=== PATIENT | male | born 1965 | race African-American/Black ===

== ENCOUNTER 2017-02-23 23:29 | Emergency (ER) | payer SELFPAY ==
[~2017-02-23] VITALS: Ht 167.6 cm; Wt 59.0 kg
[2017-02-23] MEDS ORDERED: SODIUM CHLORIDE 0.9% 1,000 ML IV ONE (23:45)
[2017-02-23] MEDS ORDERED: KETOROLAC 30MG/ML VIAL IV STA (23:45)
[2017-02-24 00:03] LABS: BASOPHILS % 0.7 % (0.0-2.0); EOSINOPHILS % 2.4 % (0.0-5.0); HEMATOCRIT. 45.6 % (42.0-52.0); HEMOGLOBIN. 15.2 g/dL (14.0-18.0); LYMPHOCYTES % 15.9 % (20.0-50.0); MEAN CORPUSCULAR HEMOGLOBIN 31.7 pg (28.0-32.0); MEAN CORPUSCULAR HGB CONC 33.3 g/dL (31.0-37.0); MEAN CORPUSCULAR VOLUME 95.4 fL (80.0-94.0); MEAN PLATELET VOLUME 7.3 fl (7.4-10.4); MONOCYTES % 8.2 % (2.0-8.0); NEUTROPHILS % 72.8 % (40.0-76.0); PLATELET 261 x1000/uL (130-400); RED BLOOD CELL COUNT 4.78 mill/uL (4.7-6.1); RED CELL DISTRIBUTION WIDTH 13.4 % (11.6-14.6)
[2017-02-24 00:10] LABS: PROTHROMBIN TIME 10.5 sec
[2017-02-24 00:18] LABS: ALANINE AMINOTRANSFERASE 16 IU/L (13-61); ALBUMIN 3.8 g/dL (3.4-5.0); ANION GAP 11; CALCIUM 8.6 mg/dL (8.5-10.1); CARBON DIOXIDE 29 mEq/L (21-32); CHLORIDE 102 mEq/L (98-107); ETHANOL BLOOD < 10 mg/dL; INDEX HEMOLYSI 1 (1-3); INDEX ICTERIC 1 (1-4); INDEX LIPEMIC 1 (1-3); NT PRO B-TYPE NATRIURETIC PEP 26 pg/mL (5-125); TROPONIN I < 0.02 ng/mL (0.00-0.04); UREA NITROGEN BLOOD 15 mg/dL (7-21); eGFR > 60 mL/min (>60)
[2017-02-24 03:20] VITALS: BP 113/73
== END 2017-02-24 04:28 | disposition home or self-care (01) ==
LOC: ER 02-24 01:55
DX: R07.89 Other chest pain (principal); I10 Essential (primary) hypertension; J45.909 Unspecified asthma, uncomplicated; F17.210 Nicotine dependence, cigarettes, uncomplicated; F12.10 Cannabis abuse, uncomplicated; F15.10 Other stimulant abuse, uncomplicated; F14.10 Cocaine abuse, uncomplicated; J98.11 Atelectasis; R10.9 Unspecified abdominal pain; Z20.6 Contact with and (suspected) exposure to human immunodeficiency virus [HIV]
CPT/HCPCS: 36415; 71010; 74176; 80053; 83880; 84484; 85025; 85610; 93005; 96361; 96374; 99285; G0482; J1885; J7030; Z7610

== ENCOUNTER 2017-02-24 11:32 | Emergency (ER) | payer SELFPAY ==
[~2017-02-24] VITALS: Ht 177.8 cm; Wt 68.0 kg
[2017-02-24] MEDS ORDERED: HYDROCODONE/ACETAMINOPHEN 5/325MG TABLET PO ONE ×2 (14:00→15:30)
[2017-02-24 14:04] LABS: CLARITY URINE CLEAR (CLEAR); COLOR URINE YELLOW (YELLOW); GLUCOSE URINE NEGATIVE (NEGATIVE); KETONES URINE NEGATIVE (NEGATIVE); LEUKOCYTE ESTERASE URINE NEGATIVE (NEGATIVE); NITRITE URINE NEGATIVE (NEGATIVE); OCCULT BLOOD URINE NEGATIVE (NEGATIVE); PH URINE 5.5 (4.5-8.0); PROTEIN URINE NEGATIVE (NEGATIVE); SPECIFIC GRAVITY URINE 1.024 (1.005-1.030); UROBILINOGEN URINE 0.2 E.U./dL (0.2-1.0)
[2017-02-24] MEDS ORDERED: KETOROLAC 15MG/ML VIAL IV ONE (15:30)
[2017-02-24 15:53] VITALS: BP 150/91
== END 2017-02-24 16:09 | disposition home or self-care (01) ==
LOC: ER 11:32
DX: R10.11 Right upper quadrant pain (principal); I10 Essential (primary) hypertension; J45.909 Unspecified asthma, uncomplicated; F17.210 Nicotine dependence, cigarettes, uncomplicated; F14.10 Cocaine abuse, uncomplicated; F15.10 Other stimulant abuse, uncomplicated; Z88.6 Allergy status to analgesic agent
CPT/HCPCS: 81003; 96374; 99284; J1885

== ENCOUNTER 2017-02-25 12:43 | Emergency (ER) | payer SELFPAY ==
[~2017-02-25] VITALS: Ht 172.7 cm; Wt 59.0 kg
[2017-02-25] MEDS ORDERED: ONDANSETRON HCL 4MG/2ML VIAL IM ONE (13:45)
[2017-02-25] MEDS ORDERED: MORPHINE SULFATE 10 MG/ML CPJ IM ONE (13:45)
[2017-02-25 14:27] LABS: CLARITY URINE CLEAR (CLEAR); COLOR URINE YELLOW (YELLOW); GLUCOSE URINE NEGATIVE (NEGATIVE); KETONES URINE NEGATIVE (NEGATIVE); LEUKOCYTE ESTERASE URINE NEGATIVE (NEGATIVE); NITRITE URINE NEGATIVE (NEGATIVE); OCCULT BLOOD URINE NEGATIVE (NEGATIVE); PROTEIN URINE NEGATIVE (NEGATIVE); SPECIFIC GRAVITY URINE 1.016 (1.005-1.030); UROBILINOGEN URINE 0.2 E.U./dL (0.2-1.0)
[2017-02-25 14:30] LABS: HEMATOCRIT. 43.9 % (42.0-52.0); HEMOGLOBIN. 14.9 g/dL (14.0-18.0); MEAN CORPUSCULAR HEMOGLOBIN 32.1 pg (28.0-32.0); MEAN CORPUSCULAR VOLUME 94.5 fL (80.0-94.0); MEAN PLATELET VOLUME 7.6 fl (7.4-10.4); PLATELET 268 x1000/uL (130-400); RED BLOOD CELL COUNT 4.64 mill/uL (4.7-6.1); RED CELL DISTRIBUTION WIDTH 13.1 % (11.6-14.6); WHITE BLOOD COUNT 8.3 x1000/uL (4.5-11.0)
[2017-02-25 14:32] LABS: CHLORIDE 100 mEq/L (98-107); INDEX HEMOLYSI 1 (1-3); INDEX ICTERIC 1 (1-4); INDEX LIPEMIC 1 (1-3)
[2017-02-25 14:36] LABS: ALBUMIN 3.7 g/dL (3.4-5.0); ANION GAP 10; CALCIUM 8.9 mg/dL (8.5-10.1); CARBON DIOXIDE 30 mEq/L (21-32); UREA NITROGEN BLOOD 11 mg/dL (7-21)
[2017-02-25 14:37] LABS: DIFFERENTIAL COMMENT 1
[2017-02-25 14:38] LABS: PROTHROMBIN TIME 10.4 sec
[2017-02-25 14:42] LABS: ALANINE AMINOTRANSFERASE 16 IU/L (13-61); eGFR > 60 mL/min (>60)
[2017-02-25 14:47] LABS: *AMPHETAMINES SCREEN URINE NEGATIVE (NEGATIVE); *BARBITURATES SCREEN URINE NEGATIVE (NEGATIVE); *BENZODIAZEPINES SCREEN URINE NEGATIVE (NEGATIVE); *COCAINE SCREEN URINE PRESUMTIVE POSITIVE (NEGATIVE); CANNABINOID URINE SCREEN NEGATIVE (NEGATIVE); ECSTASY MDMA SCREEN URINE NEGATIVE (NEGATIVE); METHADONE URINE SCREEN NEGATIVE (NEGATIVE); OPIATES URINE SCREEN PRESUMTIVE POSITIVE (NEGATIVE); PHENCYCLIDINE URINE SCREEN NEGATIVE (NEGATIVE)
[2017-02-25 16:08] LABS: ANISOCYTOSIS 1+; PLATELET ESTIMATE NORMAL
[2017-02-25] MEDS ORDERED: IBUPROFEN 600MG TABLET PO ONE (18:45)
[2017-02-25 19:13] VITALS: BP 139/102
== END 2017-02-25 19:46 | disposition home or self-care (01) ==
LOC: ER 12:43
DX: M54.5 Low back pain (principal); F14.10 Cocaine abuse, uncomplicated; F15.10 Other stimulant abuse, uncomplicated; F12.10 Cannabis abuse, uncomplicated; F17.210 Nicotine dependence, cigarettes, uncomplicated; I10 Essential (primary) hypertension; Z88.6 Allergy status to analgesic agent; J45.909 Unspecified asthma, uncomplicated; Z59.0 Homelessness
CPT/HCPCS: 36415; 74176; 80053; 80305; 81003; 85025; 85610; 96372; 99285; J2270; J2405

== ENCOUNTER 2018-07-25 11:34 | Emergency (ER) | payer MEDICAID ==
[~2018-07-25] VITALS: Ht 167.6 cm; Wt 63.0 kg
[2018-07-25] MEDS ORDERED: ASPIRIN 81MG TABLET PO ONE (12:15)
[2018-07-25] MEDS ORDERED: SODIUM CHLORIDE 0.9% 1,000 ML IV ONE (12:15)
[2018-07-25] MEDS ORDERED: NITROGLYCERIN 0.4MG TABLET SL SL ONE (12:15)
[2018-07-25 13:01] LABS: BASOPHILS % 0.6 % (0.0-2.0); EOSINOPHILS % 13.8 % (0.0-5.0); HEMATOCRIT. 48.6 % (42.0-52.0); HEMOGLOBIN. 16.7 g/dL (14.0-18.0); LYMPHOCYTES % 28.2 % (20.0-50.0); MEAN CORPUSCULAR HEMOGLOBIN 32.2 pg (28.0-32.0); MEAN CORPUSCULAR VOLUME 93.6 fL (80.0-94.0); MONOCYTES % 7.6 % (2.0-8.0); NEUTROPHILS % 49.8 % (40.0-76.0); PLATELET 291 x1000/uL (130-400); RED BLOOD CELL COUNT 5.19 mill/uL (4.7-6.1); RED CELL DISTRIBUTION WIDTH 14.4 % (11.6-14.6)
[2018-07-25 13:04] LABS: INR 0.9; PROTHROMBIN TIME 9.4 sec (9.1-11.1)
[2018-07-25 13:07] LABS: CHLORIDE 102 mEq/L (98-107)
[2018-07-25] MEDS ORDERED: DEXTROSE 50% WATER 50ML SYRINGE IV ONE (13:26)
[2018-07-25 18:01] VITALS: BP 108/76
== END 2018-07-25 18:07 | disposition home or self-care (01) ==
LOC: ER 11:34
DX: R07.89 Other chest pain (principal); K08.89 Other specified disorders of teeth and supporting structures; J45.909 Unspecified asthma, uncomplicated; I10 Essential (primary) hypertension; F17.200 Nicotine dependence, unspecified, uncomplicated; F14.10 Cocaine abuse, uncomplicated; F12.10 Cannabis abuse, uncomplicated; Z88.6 Allergy status to analgesic agent
CPT/HCPCS: 36415; 71045; 80053; 82962; 84484; 85025; 85610; 93005; 99285; J7030

== ENCOUNTER 2018-08-05 14:18 | Emergency (ER) | payer MEDICAID ==
[~2018-08-05] VITALS: Ht 170.2 cm; Wt 56.7 kg
[2018-08-05 14:40] VITALS: BP 110/79
== END 2018-08-05 18:15 | disposition left against medical advice (07) ==
LOC: ER 14:18
DX: R05 Cough (principal); R07.0 Pain in throat; R09.89 Other specified symptoms and signs involving the circulatory and respiratory systems; J45.909 Unspecified asthma, uncomplicated; I10 Essential (primary) hypertension; F12.10 Cannabis abuse, uncomplicated; F17.200 Nicotine dependence, unspecified, uncomplicated; Z53.21 Procedure and treatment not carried out due to patient leaving prior to being seen by health care provider

== ENCOUNTER 2020-04-19 08:55 | Emergency (ER) | payer MEDICAID ==
[~2020-04-19] VITALS: Ht 172.7 cm; Wt 75.0 kg
[2020-04-19] MEDS ORDERED: ACETAMINOPHEN 325MG TABLET PO ONE (10:15)
[2020-04-19 10:35] VITALS: BP 134/92
== END 2020-04-19 10:35 | disposition home or self-care (01) ==
LOC: ER 08:55
DX: R21 Rash and other nonspecific skin eruption (principal); I10 Essential (primary) hypertension; F12.10 Cannabis abuse, uncomplicated; J45.909 Unspecified asthma, uncomplicated; Z88.6 Allergy status to analgesic agent
CPT/HCPCS: 99282; 99283

== ENCOUNTER 2021-08-04 19:28 | Inpatient (IN) | payer MEDICAID ==
[~2021-08-04] VITALS: Ht 167.6 cm; Wt 54.7 kg
[2021-08-04] MEDS ORDERED: ONDANSETRON 4MG ODT PO STA (22:09)
[2021-08-04] MEDS ORDERED: ACETAMINOPHEN 325MG TABLET PO ONE (22:15)
[2021-08-04 22:20] LABS: CLARITY URINE CLEAR (CLEAR); COLOR URINE YELLOW (YELLOW); KETONES URINE NEGATIVE (NEGATIVE); LEUKOCYTE ESTERASE URINE NEGATIVE (NEGATIVE); NITRITE URINE NEGATIVE (NEGATIVE); OCCULT BLOOD URINE NEGATIVE (NEGATIVE); PH URINE 5.5 (4.5-8.0); PROTEIN URINE 1+ (NEGATIVE); SPECIFIC GRAVITY URINE 1.012 (1.005-1.030); UROBILINOGEN URINE 0.2 E.U./dL (0.2-1.0)
[2021-08-04 22:29] LABS: CANNABINOID URINE SCREEN NEGATIVE (NEGATIVE); METHADONE URINE SCREEN NEGATIVE (NEGATIVE); OPIATES URINE SCREEN NEGATIVE (NEGATIVE)
[2021-08-04 22:30] LABS: *AMPHETAMINES SCREEN URINE NEGATIVE (NEGATIVE); *BARBITURATES SCREEN URINE NEGATIVE (NEGATIVE); *BENZODIAZEPINES SCREEN URINE NEGATIVE (NEGATIVE); *COCAINE SCREEN URINE PRESUMTIVE POSITIVE (NEGATIVE); PHENCYCLIDINE URINE SCREEN NEGATIVE (NEGATIVE)
[2021-08-04 23:00] LABS: HEMATOCRIT. 38.7 % (42.0-52.0); HEMOGLOBIN. 13.1 g/dL (14.0-18.0); MEAN CORPUSCULAR HEMOGLOBIN 32.5 pg (28.0-32.0); MEAN CORPUSCULAR VOLUME 95.8 fL (80.0-94.0); MEAN PLATELET VOLUME 7.3 fl (7.4-10.4); PLATELET 287 x1000/uL (130-400); RED BLOOD CELL COUNT 4.04 mill/uL (4.7-6.1); RED CELL DISTRIBUTION WIDTH 13.1 % (11.6-14.6)
[2021-08-04 23:05] LABS: CHLORIDE 101 mEq/L (98-107)
[2021-08-04 23:09] LABS: ETHANOL BLOOD < 10 mg/dL
[2021-08-04 23:16] LABS: PLATELET ESTIMATE NORMAL
[2021-08-05] MEDS ORDERED: SODIUM CHLORIDE 0.9% 1,000 ML IV ONE (00:30)
[2021-08-05] MEDS ORDERED: METOCLOPRAMIDE HCL 10MG/2ML VIAL IV ONE (00:30)
[2021-08-05] MEDS ORDERED: DIPHENHYDRAMINE 50MG/ML VIAL IV ONE (00:30)
[2021-08-05 02:04] LABS: PROTHROMBIN TIME 10.6 sec (9.6-11.0)
[2021-08-05] MEDS ORDERED: ASPIRIN 325MG EC TABLET PO ONE (02:15)
[2021-08-05] MEDS ORDERED: IOHEXOL-350 100 ML BOTTLE ONE (02:31)
[2021-08-05] MEDS ORDERED: ONDANSETRON HCL 4MG/2ML INJ IV PRN (08:45)
[2021-08-05 12:00] VITALS: BP 117/68
[2021-08-05] MEDS: NICOTINE 14MG PATCH TD SCH (13:31)
[2021-08-05] MEDS: THIAMINE HCL 100MG TABLET PO SCH (13:31)
[2021-08-05] MEDS: ACETAMINOPHEN 325MG TABLET PO PRN ×2 (13:32→23:19)
[2021-08-05 14:30] VITALS: BP 107/71
[2021-08-05] MEDS ORDERED: SUMATRIPTAN SUCCINATE 6MG/0.5ML VIAL SUBCUT NR (14:30)
[2021-08-05 16:00] VITALS: BP_SYST 110; BP_SYST 143; BP_DIAS 58; BP_DIAS 86
[2021-08-05 19:44] VITALS: BP 110/58
[2021-08-05 20:00] VITALS: BP 116/86
[2021-08-06] VITALS: BP 121/84
[2021-08-06 04:00] VITALS: BP 110/76
[2021-08-06 08:00] VITALS: BP 127/96
[2021-08-06] MEDS ORDERED: NALOXONE HCL 0.4MG/ML VIAL IV PRN (08:15)
[2021-08-06] MEDS: THIAMINE HCL 100MG TABLET PO SCH (08:45)
[2021-08-06] MEDS: NICOTINE 14MG PATCH TD SCH (08:45)
[2021-08-06] MEDS: ASPIRIN 81MG TABLET PO SCH (08:45)
[2021-08-06] MEDS: ACETAMINOPHEN 325MG TABLET PO PRN (08:45)
[2021-08-06 12:00] VITALS: BP 116/81
[2021-08-06 16:00] VITALS: BP 108/80
[2021-08-06 20:00] VITALS: BP 118/91
[2021-08-06] MEDS: HYDROCODONE/ACETAMINOPHEN 5/325MG TABLET PO PRN (23:05)
[2021-08-07] MEDS: HYDROCODONE/ACETAMINOPHEN 5/325MG TABLET PO PRN (06:27)
[2021-08-07 08:00] VITALS: BP 110/82
[2021-08-07] MEDS: NICOTINE 14MG PATCH TD SCH (08:28)
[2021-08-07] MEDS: THIAMINE HCL 100MG TABLET PO SCH (08:28)
[2021-08-07] MEDS: ASPIRIN 81MG TABLET PO SCH (08:28)
[2021-08-07] MEDS ORDERED: ASPI-1160 PO (08:42)
[2021-08-07] MEDS ORDERED: THIA100T72 PO (08:42)
[2021-08-07 13:52] VITALS: BP 129/84
[2021-08-07 14:00] VITALS: BP 117/90
== END 2021-08-07 14:57 | disposition home or self-care (01) | DRG 54 ==
LOC: ER 19:28 → MICUSO 08-05 07:58 → 8WST 08-05 09:22
PROVIDERS: ADMIT Internal Medicine; ATTEND Internal Medicine
DX: G43.909 Migraine, unspecified, not intractable, without status migrainosus (principal); E44.0 Moderate protein-calorie malnutrition; D72.819 Decreased white blood cell count, unspecified; F14.90 Cocaine use, unspecified, uncomplicated; F17.210 Nicotine dependence, cigarettes, uncomplicated; I10 Essential (primary) hypertension; J45.909 Unspecified asthma, uncomplicated; Z68.1 Body mass index [BMI] 19.9 or less, adult; Z88.8 Allergy status to other drugs, medicaments and biological substances; Z71.51 Drug abuse counseling and surveillance of drug abuser
CPT/HCPCS: 36415; 70496; 70498; 70551; 71045; 80053; 80061; 80305; 80320; 81003; 82962; 84484; 85025; 93005; 97162; 99291; J1200; J2765; J3030; J7030; Q0162; Q9967; G0480

== ENCOUNTER 2022-10-29 13:55 | Emergency (ER) | payer MEDICAID ==
[~2022-10-29] VITALS: Ht 170.2 cm; Wt 58.0 kg
[~2022-10-29 13:55] MED LIST: ASPI-1160 PO; THIA100T72 PO
[2022-10-29 14:22] VITALS: BP 109/71
[2022-10-29 15:57] LABS: CHLORIDE 96 mEq/L (98-107)
[2022-10-29 15:58] LABS: HEMATOCRIT. 42.4 % (42.0-52.0); HEMOGLOBIN. 14.1 g/dL (14.0-18.0); MEAN CORPUSCULAR HEMOGLOBIN 32.6 pg (28.0-32.0); PLATELET 280 x1000/uL (130-400); RED BLOOD CELL COUNT 4.32 mill/uL (4.7-6.1); RED CELL DISTRIBUTION WIDTH 13.6 % (11.6-14.6)
[2022-10-29 16:52] LABS: PLATELET ESTIMATE NORMAL
== END 2022-10-29 21:41 | disposition left against medical advice (07) ==
LOC: ER 13:55
DX: Z53.21 Procedure and treatment not carried out due to patient leaving prior to being seen by health care provider (principal); R53.1 Weakness
CPT/HCPCS: 36415; 80053; 85025; 99283

== ENCOUNTER 2022-10-29 21:19 | Inpatient (IN) | payer MEDICAID ==
[~2022-10-29] VITALS: Ht 172.7 cm; Wt 55.3 kg
[2022-10-29] MEDS ORDERED: VANCOMYCIN 1G PREMIX 200 ML IV ONE (23:45)
[2022-10-29] MEDS ORDERED: SODIUM CHLORIDE 0.9% 1000ML BAG (SEPSIS BOLUS) IV ONE (23:45)
[2022-10-29] MEDS ORDERED: PIPERACILLIN/TAZ 3.375G PREMIX 50 ML IV ONE (23:45)
[2022-10-29] MEDS ORDERED: IPRATROPIUM BROMIDE (0.02%) 0.5MG/2.5ML NEB HHN STA (23:58)
[2022-10-29] MEDS ORDERED: METHYLPREDNISOLONE SOD SUCC 125 MG/2 ML VIAL IV STA (23:58)
[2022-10-30] MEDS ORDERED: MAGNESIUM 2 G PREMIX 50 ML IV ONE
[2022-10-30] MEDS: ALBUTEROL (0.083%) 2.5MG/3ML NEB HHN SCH ×3 (00:30→01:00)
[2022-10-30 01:57] LABS: BG BASE EXCESS -1.2 mmol/L (-2.0-2.0); BG CARBOXYHEMOGLOBIN 0.3 % (0.5-1.5); BG DEOXYHEMOGLOBIN 5.5 % (0.0-5.0); BG FRACTION INSPIRED OXYGEN 28; BG HCO3 ACT 21.7 mmol/L (22.0-26.0); BG OXYGEN SATURATION 94.5 % (92.0-98.5); BG OXYHEMOGLOBIN 94.2 % (94.0-97.0); BG PCO2 30.9 mmHg (35.0-45.0); BG PH 7.464 (7.350-7.450); BG PO2 72.8 mmHg (75.0-100.0); BG SAMPLE SITE RH; BG VENT MODE NASAL CANNULA
[2022-10-30] MEDS ORDERED: VANCOMYCIN 1G PREMIX 200 ML IV NR (06:38)
[2022-10-30 07:06] LABS: CLARITY URINE CLOUDY (CLEAR); COLOR URINE YELLOW (YELLOW); KETONES URINE TRACE (NEGATIVE); LEUKOCYTE ESTERASE URINE NEGATIVE (NEGATIVE); NITRITE URINE NEGATIVE (NEGATIVE); OCCULT BLOOD URINE 2+ (NEGATIVE); PROTEIN URINE 3+ (NEGATIVE); SPECIFIC GRAVITY URINE 1.022 (1.005-1.030); UROBILINOGEN URINE 0.2 E.U./dL (0.2-1.0)
[2022-10-30] MEDS ORDERED: IPRATROPIUM/ALBUTEROL 0.5-3(2.5)MG/3ML NEB HHN PRN (08:00)
[2022-10-30] MEDS ORDERED: LORAZEPAM 0.5MG TABLET PO PRN (08:00)
[2022-10-30] MEDS ORDERED: PIPERACILLIN/TAZ 3.375G PREMIX 50 ML IV NR (08:15)
[2022-10-30 10:03] LABS: CHLORIDE 101 mEq/L (98-107)
[2022-10-30 13:45] LABS: *AMPHETAMINES SCREEN URINE NEGATIVE (NEGATIVE); *BARBITURATES SCREEN URINE NEGATIVE (NEGATIVE); *BENZODIAZEPINES SCREEN URINE NEGATIVE (NEGATIVE); *COCAINE SCREEN URINE PRESUMTIVE POSITIVE (NEGATIVE); CANNABINOID URINE SCREEN PRESUMTIVE POSITIVE (NEGATIVE); METHADONE URINE SCREEN NEGATIVE (NEGATIVE); OPIATES URINE SCREEN NEGATIVE (NEGATIVE); PHENCYCLIDINE URINE SCREEN NEGATIVE (NEGATIVE)
[2022-10-30] MEDS ORDERED: BENZONATATE 100MG CAPSULE PO PRN (15:00)
[2022-10-30] MEDS ORDERED: NALOXONE HCL 0.4MG/ML VIAL IV PRN (15:15)
[2022-10-30 15:36] LABS: HEMATOCRIT. 38.2 % (42.0-52.0); HEMOGLOBIN. 12.9 g/dL (14.0-18.0); MEAN CORPUSCULAR HEMOGLOBIN 32.5 pg (28.0-32.0); MEAN CORPUSCULAR VOLUME 96.3 fL (80.0-94.0); PLATELET 277 x1000/uL (130-400); RED BLOOD CELL COUNT 3.97 mill/uL (4.7-6.1); RED CELL DISTRIBUTION WIDTH 13.4 % (11.6-14.6)
[2022-10-30] MEDS: HYDROCODONE/ACETAMINOPHEN 5/325MG TABLET PO PRN (15:40)
[2022-10-30 19:40] LABS: PLATELET ESTIMATE NORMAL
[2022-10-30] MEDS: PIPERACILLIN/TAZOBACTAM 3.375 G in DEXTROSE 5% WATER 50 ML IV SCH (20:09)
[2022-10-30] MEDS: DOXYCYCLINE 100 MG in DEXT 5% WATER 100 ML IV SCH (21:48)
[2022-10-30] MEDS: GUAIFENESIN 600MG ER TABLET PO SCH (21:48)
[2022-10-31 00:35] LABS: HEPATITIS B SURFACE ANTIGEN NEGATIVE
[2022-10-31 01:45] VITALS: BP 146/100
[2022-10-31] MEDS: HYDROCODONE/ACETAMINOPHEN 5/325MG TABLET PO PRN ×4 (01:53→22:56)
[2022-10-31] MEDS: VANCOMYCIN 1G PREMIX 200 ML IV SCH ×2 (03:34→19:34)
[2022-10-31 04:00] VITALS: BP 123/87
[2022-10-31] MEDS ORDERED: ALBUTEROL (0.083%) 2.5MG/3ML NEB HHN PRN (04:00)
[2022-10-31] MEDS ORDERED: IPRATROPIUM BROMIDE (0.02%) 0.5MG/2.5ML NEB HHN PRN (04:00)
[2022-10-31 07:11] LABS: CHLORIDE 106 mEq/L (98-107)
[2022-10-31 07:25] LABS: HEMATOCRIT. 37.3 % (42.0-52.0); HEMOGLOBIN. 12.9 g/dL (14.0-18.0); MEAN CORPUSCULAR HEMOGLOBIN 33.1 pg (28.0-32.0); MEAN CORPUSCULAR VOLUME 96.1 fL (80.0-94.0); MEAN PLATELET VOLUME 8.5 fl (7.4-10.4); PLATELET 296 x1000/uL (130-400); RED BLOOD CELL COUNT 3.88 mill/uL (4.7-6.1); RED CELL DISTRIBUTION WIDTH 13.6 % (11.6-14.6)
[2022-10-31 08:00] VITALS: BP 116/86
[2022-10-31] MEDS ORDERED: VANCOMYCIN 1.25GM PMX (XELLIA) 250 ML IV SCH (08:00)
[2022-10-31] MEDS: GUAIFENESIN 600MG ER TABLET PO SCH ×2 (08:07→22:41)
[2022-10-31] MEDS: PIPERACILLIN/TAZOBACTAM 3.375 G in DEXTROSE 5% WATER 50 ML IV SCH ×3 (08:09→23:25)
[2022-10-31] MEDS: DOXYCYCLINE 100 MG in DEXT 5% WATER 100 ML IV SCH ×2 (10:14→22:38)
[2022-10-31 11:40] VITALS: BP 114/88
[2022-10-31 13:13] LABS: PLATELET ESTIMATE NORMAL
[2022-10-31 16:00] VITALS: BP 125/75
[2022-10-31 20:42] VITALS: BP 118/71
[2022-11-01 00:37] VITALS: BP 111/89
[2022-11-01 04:00] VITALS: BP 136/96
[2022-11-01 05:10] LABS: QFT MITOGEN VALUE 0.01 IU/mL (.); QFT TB GOLD PLUS Indeterminate (Negative)
[2022-11-01] MEDS: PIPERACILLIN/TAZOBACTAM 3.375 G in DEXTROSE 5% WATER 50 ML IV SCH ×2 (05:58→14:05)
[2022-11-01 08:04] VITALS: BP 117/92
[2022-11-01] MEDS: DOXYCYCLINE 100 MG in DEXT 5% WATER 100 ML IV SCH ×2 (08:37→21:04)
[2022-11-01] MEDS: GUAIFENESIN 600MG ER TABLET PO SCH ×2 (08:37→21:05)
[2022-11-01 08:45] LABS: CHLORIDE 101 mEq/L (98-107)
[2022-11-01] MEDS: HYDROCODONE/ACETAMINOPHEN 5/325MG TABLET PO PRN ×2 (08:45→17:55)
[2022-11-01 09:09] LABS: ABSOLUTE LYMPHOCYTES 0.4 x10E3/uL (0.7-3.1); ABSOLUTE MONOCYTES 0.5 x10E3/uL (0.1-0.9); ABSOLUTE NEUTROPHILS 11.4 x10E3/uL (1.4-7.0); BASOPHILS 0 % (Not Estab.); HEMATOCRIT 37.3 % (37.5-51.0); HEMOGLOBIN 13.2 g/dL (13.0-17.7); IMMATURE GRANULOCYTES 1 % (Not Estab.); IMMATURE GRANULOCYTES ABSOLUTE 0.1 x10E3/uL (0.0-0.1); LYMPHOCYTES 3 % (Not Estab.); MEAN CORPUSCULAR HEMOGLOBIN 32.7 pg (26.6-33.0); MEAN CORPUSCULAR HGB CONC. 35.4 g/dL (31.5-35.7); MEAN CORPUSCULAR VOLUME 92 fL (79-97); MONOCYTES 4 % (Not Estab.); NEUTROPHILS 92 % (Not Estab.); PLATELETS 299 x10E3/uL (150-450); RBC 4.04 x10E6/uL (4.14-5.80); RED CELL DISTRIBUTION WIDTH 11.5 % (11.6-15.4); WBC 12.4 x10E3/uL (3.4-10.8)
[2022-11-01 12:00] VITALS: BP 129/85
[2022-11-01] MEDS: VANCOMYCIN 1G PREMIX 200 ML IV SCH (12:05)
[2022-11-01 13:07] LABS: % CD 3 POS. LYMPHOCYTES 41.6 % (57.5-86.2); % CD 4 POS. LYMPHOCYTES 5.7 % (30.8-58.5); % CD 8 POS. LYMPH 30.3 % (12.0-35.5); ABSOLUTE CD 3 166 /uL (622-2402); ABSOLUTE CD 4 HELPER 23 /uL (359-1519); ABSOLUTE CD 8 SUPPRESSOR 121 /uL (109-897); CD4/CD8 RATIO 0.19 (0.92-3.72)
[2022-11-01 16:00] VITALS: BP 120/84
[2022-11-01] MEDS ORDERED: AZITHROMYCIN 500 MG TABLET PO SCH (16:00)
[2022-11-01] MEDS: AZITHROMYCIN 600 MG TABLET PO SCH (17:32)
[2022-11-01] MEDS: SULFAMETHOXAZOLE/TRIMETHOPRIM 800/160MG TABLET PO SCH (17:33)
[2022-11-01 20:55] VITALS: BP 95/55
[2022-11-02] MEDS: PIPERACILLIN/TAZOBACTAM 3.375 G in DEXTROSE 5% WATER 50 ML IV SCH ×4 (00:12→22:15)
[2022-11-02] MEDS: HYDROCODONE/ACETAMINOPHEN 5/325MG TABLET PO PRN ×3 (00:19→20:06)
[2022-11-02 00:36] VITALS: BP 103/69
[2022-11-02 04:00] VITALS: BP 114/81
[2022-11-02] MEDS: VANCOMYCIN 1G PREMIX 200 ML IV SCH (05:30)
[2022-11-02 06:37] LABS: HEMATOCRIT. 35.3 % (42.0-52.0); HEMOGLOBIN. 12.2 g/dL (14.0-18.0); MEAN CORPUSCULAR VOLUME 95.5 fL (80.0-94.0); MEAN PLATELET VOLUME 7.9 fl (7.4-10.4); PLATELET 298 x1000/uL (130-400); RED CELL DISTRIBUTION WIDTH 12.9 % (11.6-14.6)
[2022-11-02 08:00] VITALS: BP 100/73
[2022-11-02] MEDS: DOXYCYCLINE 100 MG in DEXT 5% WATER 100 ML IV SCH ×2 (08:08→20:07)
[2022-11-02] MEDS: GUAIFENESIN 600MG ER TABLET PO SCH ×2 (08:09→20:05)
[2022-11-02] MEDS ORDERED: MORPHINE SULFATE 2 MG/ML CPJ (NOT FOR IM USE) IV PRN (08:30)
[2022-11-02] MEDS ORDERED: SODIUM CHLORIDE 10% FOR INH 15ML VIAL NEB INH NR (09:00)
[2022-11-02 11:31] LABS: PLATELET ESTIMATE NORMAL
[2022-11-02 12:00] VITALS: BP 112/81
[2022-11-02] MEDS: SULFAMETHOXAZOLE/TRIMETHOPRIM 800/160MG TABLET PO SCH (14:16)
[2022-11-02 16:00] VITALS: BP 99/60
[2022-11-02 20:00] VITALS: BP 116/85
[2022-11-03] VITALS: BP 99/67
[2022-11-03] MEDS: HYDROCODONE/ACETAMINOPHEN 5/325MG TABLET PO PRN (02:54)
[2022-11-03 04:00] VITALS: BP 106/65
[2022-11-03] MEDS: PIPERACILLIN/TAZOBACTAM 3.375 G in DEXTROSE 5% WATER 50 ML IV SCH ×3 (05:03→22:29)
[2022-11-03] MEDS: GUAIFENESIN 600MG ER TABLET PO SCH ×2 (09:13→21:46)
[2022-11-03] MEDS: DOXYCYCLINE 100 MG in DEXT 5% WATER 100 ML IV SCH ×2 (09:13→19:47)
[2022-11-03 10:00] VITALS: BP 127/90
[2022-11-03 12:00] VITALS: BP 133/82
[2022-11-03] MEDS ORDERED: VANCOMYCIN 1G PREMIX 200 ML IV SCH (12:00)
[2022-11-03] MEDS: SODIUM CHLORIDE 0.9% 1,000 ML IV SCH ×2 (14:05→23:33)
[2022-11-03] MEDS: SULFAMETHOXAZOLE/TRIMETHOPRIM 800/160MG TABLET PO SCH (14:06)
[2022-11-03] MEDS: GABAPENTIN 300MG CAPSULE PO SCH ×2 (14:13→21:46)
[2022-11-03 16:00] VITALS: BP 103/77
[2022-11-03] MEDS: CEFAZOLIN 2,000 MG in DEXT 5% WATER 100 ML IV SCH ×2 (18:05→21:46)
[2022-11-03] MEDS ORDERED: AMLO5TAB88 MT (18:58)
[2022-11-03] MEDS ORDERED: SULF1TAB48 MT (18:58)
[2022-11-03] MEDS ORDERED: BICT1TAB PO (18:58)
[2022-11-03] MEDS: OXYCODONE HCL/ACETAMINOPHEN 5/325MG TABLET PO PRN (19:49)
[2022-11-03 20:00] VITALS: BP 97/64
[2022-11-04] VITALS: BP 103/64
[2022-11-04] MEDS: GUAIFENESIN-DM 200MG-20MG/10ML UDC PO PRN (01:45)
[2022-11-04 04:00] VITALS: BP 122/85
[2022-11-04] MEDS: CEFAZOLIN 2,000 MG in DEXT 5% WATER 100 ML IV SCH ×3 (05:22→21:41)
[2022-11-04] MEDS: GABAPENTIN 300MG CAPSULE PO SCH ×3 (06:13→21:41)
[2022-11-04] MEDS: PIPERACILLIN/TAZOBACTAM 3.375 G in DEXTROSE 5% WATER 50 ML IV SCH ×2 (06:13→15:42)
[2022-11-04] MEDS: DOXYCYCLINE 100 MG in DEXT 5% WATER 100 ML IV SCH ×2 (10:11→20:09)
[2022-11-04] MEDS: SODIUM CHLORIDE 0.9% 1,000 ML IV SCH ×2 (10:12→21:41)
[2022-11-04] MEDS: GUAIFENESIN 600MG ER TABLET PO SCH ×2 (10:12→20:09)
[2022-11-04] MEDS ORDERED: MENTHOL/LANOLIN/CALAMINE/ZN OX OINT 71GM TOP PRN (11:00)
[2022-11-04] MEDS: SULFAMETHOXAZOLE/TRIMETHOPRIM 800/160MG TABLET PO SCH (15:42)
[2022-11-04] MEDS: HYDROMORPHONE HCL/PF 2MG/ML CPJ IV PRN (16:39)
[2022-11-04 17:07] LABS: HEMATOCRIT. 35.6 % (42.0-52.0); MEAN CORPUSCULAR HEMOGLOBIN 32.7 pg (28.0-32.0); MEAN CORPUSCULAR VOLUME 96.6 fL (80.0-94.0); MEAN PLATELET VOLUME 7.7 fl (7.4-10.4); PLATELET 484 x1000/uL (130-400); RED BLOOD CELL COUNT 3.68 mill/uL (4.7-6.1); RED CELL DISTRIBUTION WIDTH 13.3 % (11.6-14.6)
[2022-11-04 17:19] LABS: CHLORIDE 105 mEq/L (98-107)
[2022-11-04 18:17] LABS: PLATELET ESTIMATE INCREASED
[2022-11-04 20:00] VITALS: BP 117/78
[2022-11-04] MEDS: OXYCODONE HCL/ACETAMINOPHEN 5/325MG TABLET PO PRN (21:42)
[2022-11-05] VITALS: BP 104/67
[2022-11-05 04:00] VITALS: BP 123/85
[2022-11-05] MEDS: GABAPENTIN 300MG CAPSULE PO SCH ×3 (05:20→22:36)
[2022-11-05] MEDS: CEFAZOLIN 2,000 MG in DEXT 5% WATER 100 ML IV SCH ×3 (05:20→22:36)
[2022-11-05 07:57] VITALS: BP 125/78
[2022-11-05] MEDS: GUAIFENESIN 600MG ER TABLET PO SCH ×2 (08:19→22:36)
[2022-11-05] MEDS: SODIUM CHLORIDE 0.9% 1,000 ML IV SCH ×2 (08:21→22:36)
[2022-11-05] MEDS: OXYCODONE HCL/ACETAMINOPHEN 5/325MG TABLET PO PRN ×3 (08:53→22:39)
[2022-11-05 11:51] VITALS: BP 103/67
[2022-11-05] MEDS: SULFAMETHOXAZOLE/TRIMETHOPRIM 800/160MG TABLET PO SCH (14:52)
[2022-11-05 16:10] VITALS: BP 121/85
[2022-11-05 17:09] LABS: HEMATOCRIT. 32.8 % (42.0-52.0); MEAN CORPUSCULAR HEMOGLOBIN 32.7 pg (28.0-32.0); MEAN CORPUSCULAR VOLUME 97.2 fL (80.0-94.0); MEAN PLATELET VOLUME 7.3 fl (7.4-10.4); PLATELET 453 x1000/uL (130-400); RED BLOOD CELL COUNT 3.37 mill/uL (4.7-6.1); RED CELL DISTRIBUTION WIDTH 13.3 % (11.6-14.6)
[2022-11-05 17:37] LABS: CHLORIDE 105 mEq/L (98-107)
[2022-11-05 18:13] LABS: PLATELET ESTIMATE INCREASED
[2022-11-05 20:00] VITALS: BP 95/62
[2022-11-06] VITALS: BP 91/54
[2022-11-06 04:00] VITALS: BP 104/65
[2022-11-06] MEDS: GABAPENTIN 300MG CAPSULE PO SCH ×3 (06:23→22:22)
[2022-11-06] MEDS: CEFAZOLIN 2,000 MG in DEXT 5% WATER 100 ML IV SCH ×3 (06:23→22:00)
[2022-11-06] MEDS: OXYCODONE HCL/ACETAMINOPHEN 5/325MG TABLET PO PRN ×3 (06:24→20:19)
[2022-11-06 07:13] LABS: BASOPHILS % 0.5 % (0.0-2.0); HEMATOCRIT. 31.1 % (42.0-52.0); HEMOGLOBIN. 10.6 g/dL (14.0-18.0); LYMPHOCYTES % 7.8 % (20.0-50.0); MEAN CORPUSCULAR HEMOGLOBIN 32.6 pg (28.0-32.0); MEAN PLATELET VOLUME 7.3 fl (7.4-10.4); MONOCYTES % 10.6 % (2.0-8.0); NEUTROPHILS % 77.1 % (40.0-76.0); PLATELET 468 x1000/uL (130-400); RED BLOOD CELL COUNT 3.25 mill/uL (4.7-6.1); RED CELL DISTRIBUTION WIDTH 13.1 % (11.6-14.6)
[2022-11-06 07:37] LABS: CHLORIDE 104 mEq/L (98-107)
[2022-11-06 08:07] VITALS: BP 105/59
[2022-11-06] MEDS: ACETAMINOPHEN 325MG TABLET PO PRN (08:20)
[2022-11-06] MEDS: GUAIFENESIN 600MG ER TABLET PO SCH ×2 (08:20→22:21)
[2022-11-06] MEDS: SODIUM CHLORIDE 0.9% 1,000 ML IV SCH ×2 (11:15→21:37)
[2022-11-06 11:54] VITALS: BP 109/64
[2022-11-06] MEDS: SULFAMETHOXAZOLE/TRIMETHOPRIM 800/160MG TABLET PO SCH (15:09)
[2022-11-06 15:46] VITALS: BP 156/86
[2022-11-06 20:00] VITALS: BP 152/93
[2022-11-07] VITALS: BP 101/56
[2022-11-07] MEDS: OXYCODONE HCL/ACETAMINOPHEN 5/325MG TABLET PO PRN ×3 (03:47→18:48)
[2022-11-07 04:00] VITALS: BP 133/88
[2022-11-07] MEDS: CEFAZOLIN 2,000 MG in DEXT 5% WATER 100 ML IV SCH ×3 (05:56→21:02)
[2022-11-07] MEDS: GABAPENTIN 300MG CAPSULE PO SCH ×3 (06:09→21:03)
[2022-11-07 07:31] LABS: HEMATOCRIT. 29.5 % (42.0-52.0); HEMOGLOBIN. 10.1 g/dL (14.0-18.0); MEAN CORPUSCULAR HEMOGLOBIN 32.8 pg (28.0-32.0); MEAN CORPUSCULAR VOLUME 95.5 fL (80.0-94.0); MEAN PLATELET VOLUME 7.3 fl (7.4-10.4); PLATELET 448 x1000/uL (130-400); RED BLOOD CELL COUNT 3.08 mill/uL (4.7-6.1); RED CELL DISTRIBUTION WIDTH 13.1 % (11.6-14.6)
[2022-11-07 07:36] LABS: CHLORIDE 103 mEq/L (98-107)
[2022-11-07 08:00] VITALS: BP_SYST 109; BP_SYST 117; BP_DIAS 50; BP_DIAS 67
[2022-11-07] MEDS: GUAIFENESIN 600MG ER TABLET PO SCH ×2 (09:51→21:02)
[2022-11-07] MEDS: DOCUSATE SODIUM 100MG CAPSULE PO PRN (09:51)
[2022-11-07] MEDS: SODIUM CHLORIDE 0.9% 1,000 ML IV SCH ×2 (09:52→21:03)
[2022-11-07 12:00] VITALS: BP 97/73
[2022-11-07] MEDS: SULFAMETHOXAZOLE/TRIMETHOPRIM 800/160MG TABLET PO SCH (14:20)
[2022-11-07] MEDS: BENZONATATE 100MG CAPSULE PO PRN (14:20)
[2022-11-07] MEDS: HYDROMORPHONE HCL/PF 2MG/ML CPJ IV PRN ×2 (14:30→17:40)
[2022-11-07 16:00] VITALS: BP 130/86
[2022-11-07 17:53] LABS: PLATELET ESTIMATE INCREASED
[2022-11-07 20:00] VITALS: BP 91/55
[2022-11-07] MEDS: ACETAMINOPHEN 325MG TABLET PO PRN (21:03)
[2022-11-08 00:51] VITALS: BP 105/67
[2022-11-08] MEDS: OXYCODONE HCL/ACETAMINOPHEN 5/325MG TABLET PO PRN ×2 (02:01→05:17)
[2022-11-08] MEDS: GUAIFENESIN-DM 200MG-20MG/10ML UDC PO PRN (02:01)
[2022-11-08 04:00] VITALS: BP 98/59
[2022-11-08] MEDS: CEFAZOLIN 2,000 MG in DEXT 5% WATER 100 ML IV SCH ×3 (05:15→21:20)
[2022-11-08] MEDS: GABAPENTIN 300MG CAPSULE PO SCH ×3 (05:16→21:18)
[2022-11-08 06:11] LABS: HEMATOCRIT. 29.9 % (42.0-52.0); HEMOGLOBIN. 10.1 g/dL (14.0-18.0); MEAN CORPUSCULAR HEMOGLOBIN 32.8 pg (28.0-32.0); MEAN CORPUSCULAR VOLUME 96.8 fL (80.0-94.0); PLATELET 416 x1000/uL (130-400); RED BLOOD CELL COUNT 3.09 mill/uL (4.7-6.1); RED CELL DISTRIBUTION WIDTH 13.2 % (11.6-14.6)
[2022-11-08 06:18] LABS: CHLORIDE 103 mEq/L (98-107)
[2022-11-08 08:00] VITALS: BP 118/56
[2022-11-08] MEDS: BENZONATATE 100MG CAPSULE PO PRN ×2 (08:19→13:01)
[2022-11-08] MEDS: GUAIFENESIN 600MG ER TABLET PO SCH ×2 (08:19→21:17)
[2022-11-08] MEDS: AZITHROMYCIN 600 MG TABLET PO SCH (08:19)
[2022-11-08] MEDS: SODIUM CHLORIDE 0.9% 1,000 ML IV SCH ×2 (08:20→13:12)
[2022-11-08 12:00] VITALS: BP 132/90
[2022-11-08] MEDS: HYDROMORPHONE HCL/PF 2MG/ML CPJ IV PRN (13:02)
[2022-11-08] MEDS: SULFAMETHOXAZOLE/TRIMETHOPRIM 800/160MG TABLET PO SCH (13:02)
[2022-11-08 16:00] VITALS: BP 115/63
[2022-11-08 16:32] LABS: PLATELET ESTIMATE INCREASED
[2022-11-08] MEDS: ACETAMINOPHEN 325MG TABLET PO PRN (16:38)
[2022-11-08 20:30] VITALS: BP 101/63
[2022-11-09] VITALS: BP 141/86
[2022-11-09] MEDS: ACETAMINOPHEN 325MG TABLET PO PRN ×3 (02:56→18:53)
[2022-11-09] MEDS: GUAIFENESIN-DM 200MG-20MG/10ML UDC PO PRN (03:18)
[2022-11-09] MEDS ORDERED: HYDROMORPHONE HCL/PF 2MG/ML CPJ IV NR (03:30)
[2022-11-09] MEDS: CEFAZOLIN 2,000 MG in DEXT 5% WATER 100 ML IV SCH ×3 (05:27→21:18)
[2022-11-09 08:00] VITALS: BP 98/70
[2022-11-09] MEDS: GUAIFENESIN 600MG ER TABLET PO SCH ×2 (08:45→21:19)
[2022-11-09] MEDS: SODIUM CHLORIDE 0.9% 1,000 ML IV SCH (08:50)
[2022-11-09 12:00] VITALS: BP 89/52
[2022-11-09 13:15] VITALS: BP 105/59
[2022-11-09] MEDS: SULFAMETHOXAZOLE/TRIMETHOPRIM 800/160MG TABLET PO SCH (14:11)
[2022-11-09] MEDS: GABAPENTIN 300MG CAPSULE PO SCH ×2 (14:11→21:19)
[2022-11-09 16:00] VITALS: BP 111/61
[2022-11-09 17:11] LABS: *HIV-1 RNA BY PCR 964000 copies/mL (.)
[2022-11-09 20:00] VITALS: BP 96/59
[2022-11-09] MEDS: HYDROCODONE/ACETAMINOPHEN 5/325MG TABLET PO PRN (21:20)
[2022-11-10] VITALS: BP 112/67
[2022-11-10] MEDS: GUAIFENESIN-DM 200MG-20MG/10ML UDC PO PRN ×2 (02:00→15:24)
[2022-11-10] MEDS: HYDROCODONE/ACETAMINOPHEN 5/325MG TABLET PO PRN ×3 (02:08→19:04)
[2022-11-10] MEDS: GABAPENTIN 300MG CAPSULE PO SCH ×3 (05:41→21:56)
[2022-11-10] MEDS: CEFAZOLIN 2,000 MG in DEXT 5% WATER 100 ML IV SCH ×3 (05:41→21:56)
[2022-11-10] MEDS: SODIUM CHLORIDE 0.9% 1,000 ML IV SCH ×3 (05:42→21:56)
[2022-11-10 08:00] VITALS: BP 114/78
[2022-11-10] MEDS: GUAIFENESIN 600MG ER TABLET PO SCH ×2 (11:49→21:56)
[2022-11-10 12:00] VITALS: BP 104/67
[2022-11-10] MEDS: SULFAMETHOXAZOLE/TRIMETHOPRIM 800/160MG TABLET PO SCH (15:23)
[2022-11-10 16:00] VITALS: BP 119/62
[2022-11-10] MEDS: ONDANSETRON HCL 4MG/2ML INJ IV PRN (19:06)
[2022-11-10 20:00] VITALS: BP 97/63
[2022-11-11] VITALS: BP 105/76
[2022-11-11] MEDS: HYDROCODONE/ACETAMINOPHEN 5/325MG TABLET PO PRN ×4 (01:56→21:11)
[2022-11-11] MEDS: ONDANSETRON HCL 4MG/2ML INJ IV PRN ×2 (02:06→21:21)
[2022-11-11 04:00] VITALS: BP 103/78
[2022-11-11] MEDS: CEFAZOLIN 2,000 MG in DEXT 5% WATER 100 ML IV SCH ×3 (05:40→21:05)
[2022-11-11] MEDS: GABAPENTIN 300MG CAPSULE PO SCH ×3 (05:40→21:05)
[2022-11-11] MEDS: GUAIFENESIN 600MG ER TABLET PO SCH ×2 (08:28→21:16)
[2022-11-11] MEDS: GUAIFENESIN-DM 200MG-20MG/10ML UDC PO PRN (08:39)
[2022-11-11] MEDS: SODIUM CHLORIDE 0.9% 1,000 ML IV SCH ×2 (08:45→21:05)
[2022-11-11] MEDS: SULFAMETHOXAZOLE/TRIMETHOPRIM 800/160MG TABLET PO SCH (15:00)
[2022-11-11] MEDS: ACETAMINOPHEN 325MG TABLET PO PRN (17:14)
[2022-11-11 21:50] VITALS: BP 116/80
[2022-11-12] MEDS: ACETAMINOPHEN 325MG TABLET PO PRN (00:54)
[2022-11-12] MEDS: GUAIFENESIN-DM 200MG-20MG/10ML UDC PO PRN (00:55)
[2022-11-12 04:22] VITALS: BP 119/80
[2022-11-12] MEDS: HYDROCODONE/ACETAMINOPHEN 5/325MG TABLET PO PRN ×3 (04:29→20:36)
[2022-11-12] MEDS: SODIUM CHLORIDE 0.9% 1,000 ML IV SCH (05:33)
[2022-11-12] MEDS: GABAPENTIN 300MG CAPSULE PO SCH ×3 (05:37→20:35)
[2022-11-12] MEDS: CEFAZOLIN 2,000 MG in DEXT 5% WATER 100 ML IV SCH ×3 (05:38→20:36)
[2022-11-12 08:00] VITALS: BP 125/93
[2022-11-12] MEDS: GUAIFENESIN 600MG ER TABLET PO SCH ×2 (09:29→20:35)
[2022-11-12] MEDS: ONDANSETRON HCL 4MG/2ML INJ IV PRN ×3 (09:53→20:38)
[2022-11-12 12:00] VITALS: BP 131/80
[2022-11-12] MEDS: SULFAMETHOXAZOLE/TRIMETHOPRIM 800/160MG TABLET PO SCH (15:00)
[2022-11-12 16:00] VITALS: BP 99/66
[2022-11-12 20:00] VITALS: BP 131/91
[2022-11-13] VITALS (7 sets, daily range): BP systolic 110–143; BP diastolic 78–94
[2022-11-13] MEDS: HYDROCODONE/ACETAMINOPHEN 5/325MG TABLET PO PRN ×4 (01:49→21:42)
[2022-11-13] MEDS ORDERED: ASPIRIN 325MG EC TABLET PO ONE (02:15)
[2022-11-13] MEDS: NITROGLYCERIN 0.4MG TABLET SL SL PRN ×2 (02:16→02:31)
[2022-11-13] MEDS: GABAPENTIN 300MG CAPSULE PO SCH ×3 (05:12→21:36)
[2022-11-13] MEDS: CEFAZOLIN 2,000 MG in DEXT 5% WATER 100 ML IV SCH ×3 (05:12→21:36)
[2022-11-13] MEDS: GUAIFENESIN-DM 200MG-20MG/10ML UDC PO PRN (07:07)
[2022-11-13] MEDS: ONDANSETRON HCL 4MG/2ML INJ IV PRN ×3 (07:07→21:52)
[2022-11-13] MEDS: GUAIFENESIN 600MG ER TABLET PO SCH ×2 (08:58→21:36)
[2022-11-13] MEDS: SULFAMETHOXAZOLE/TRIMETHOPRIM 800/160MG TABLET PO SCH (15:40)
[2022-11-14] VITALS: BP 123/87
[2022-11-14 04:00] VITALS: BP 137/91
[2022-11-14] MEDS: ACETAMINOPHEN 325MG TABLET PO PRN (04:31)
[2022-11-14] MEDS: CEFAZOLIN 2,000 MG in DEXT 5% WATER 100 ML IV SCH ×3 (05:06→21:20)
[2022-11-14] MEDS: GABAPENTIN 300MG CAPSULE PO SCH ×3 (05:08→21:19)
[2022-11-14 08:00] VITALS: BP 119/84
[2022-11-14] MEDS: GUAIFENESIN 600MG ER TABLET PO SCH ×2 (08:26→21:19)
[2022-11-14] MEDS: HYDROCODONE/ACETAMINOPHEN 5/325MG TABLET PO PRN ×2 (08:33→19:46)
[2022-11-14 12:00] VITALS: BP 117/78
[2022-11-14] MEDS: SULFAMETHOXAZOLE/TRIMETHOPRIM 800/160MG TABLET PO SCH (14:25)
[2022-11-14 16:00] VITALS: BP 120/76
[2022-11-14 20:00] VITALS: BP 126/88
[2022-11-15] MEDS: SODIUM CHLORIDE 0.9% 1,000 ML IV SCH ×2 (04:15→16:24)
[2022-11-15] MEDS: GABAPENTIN 300MG CAPSULE PO SCH ×3 (05:27→20:52)
[2022-11-15] MEDS: CEFAZOLIN 2,000 MG in DEXT 5% WATER 100 ML IV SCH ×3 (05:27→21:00)
[2022-11-15] MEDS ORDERED: HYDROCODONE/ACETAMINOPHEN 5/325MG TABLET PO NR (06:15)
[2022-11-15 08:01] VITALS: BP 119/87
[2022-11-15] MEDS: GUAIFENESIN 600MG ER TABLET PO SCH ×2 (09:06→20:51)
[2022-11-15] MEDS: AZITHROMYCIN 600 MG TABLET PO SCH (09:07)
[2022-11-15] MEDS: ACETAMINOPHEN 325MG TABLET PO PRN ×2 (09:07→20:50)
[2022-11-15 12:29] VITALS: BP 118/82
[2022-11-15] MEDS ORDERED: NALOXONE HCL 0.4MG/ML VIAL IV PRN (12:45)
[2022-11-15] MEDS: HYDROCODONE/ACETAMINOPHEN 5/325MG TABLET PO PRN ×2 (13:01→20:52)
[2022-11-15] MEDS: NYSTATIN 100,000 UNITS/ML 5ML UDC SSW SCH ×2 (13:02→18:08)
[2022-11-15 16:20] VITALS: BP 112/83
[2022-11-15] MEDS: SULFAMETHOXAZOLE/TRIMETHOPRIM 800/160MG TABLET PO SCH (16:24)
[2022-11-15] MEDS: NITROGLYCERIN 0.4MG TABLET SL SL PRN (18:17)
[2022-11-15 20:00] VITALS: BP 134/93
[2022-11-15] MEDS: ONDANSETRON HCL 4MG/2ML INJ IV PRN (20:50)
[2022-11-16] VITALS (7 sets, daily range): BP systolic 100–141; BP diastolic 60–92
[2022-11-16] MEDS: NYSTATIN 100,000 UNITS/ML 5ML UDC SSW SCH ×4 (00:01→17:57)
[2022-11-16] MEDS: GABAPENTIN 300MG CAPSULE PO SCH ×3 (05:54→21:23)
[2022-11-16] MEDS: ACETAMINOPHEN 325MG TABLET PO PRN (05:54)
[2022-11-16] MEDS: SODIUM CHLORIDE 0.9% 1,000 ML IV SCH ×2 (05:54→17:45)
[2022-11-16] MEDS: CEFAZOLIN 2,000 MG in DEXT 5% WATER 100 ML IV SCH ×3 (05:54→21:23)
[2022-11-16] MEDS: GUAIFENESIN 600MG ER TABLET PO SCH ×2 (08:47→21:23)
[2022-11-16] MEDS: HYDROCODONE/ACETAMINOPHEN 5/325MG TABLET PO PRN ×3 (08:47→21:23)
[2022-11-16] MEDS: SULFAMETHOXAZOLE/TRIMETHOPRIM 800/160MG TABLET PO SCH (13:46)
[2022-11-16] MEDS: BENZONATATE 100MG CAPSULE PO PRN (17:57)
[2022-11-16] MEDS: GUAIFENESIN-DM 200MG-20MG/10ML UDC PO PRN (18:00)
[2022-11-16] MEDS: ONDANSETRON HCL 4MG/2ML INJ IV PRN (21:27)
[2022-11-17] VITALS: BP 109/79
[2022-11-17] MEDS: NYSTATIN 100,000 UNITS/ML 5ML UDC SSW SCH ×5 (00:43→21:49)
[2022-11-17 04:00] VITALS: BP 126/88
[2022-11-17] MEDS: HYDROCODONE/ACETAMINOPHEN 5/325MG TABLET PO PRN ×3 (04:13→21:52)
[2022-11-17] MEDS: CEFAZOLIN 2,000 MG in DEXT 5% WATER 100 ML IV SCH ×3 (05:19→21:48)
[2022-11-17] MEDS: GABAPENTIN 300MG CAPSULE PO SCH ×3 (05:21→21:49)
[2022-11-17 08:00] VITALS: BP 116/78
[2022-11-17] MEDS: GUAIFENESIN 600MG ER TABLET PO SCH ×2 (08:11→21:49)
[2022-11-17] MEDS: BENZONATATE 100MG CAPSULE PO PRN ×2 (08:23→12:47)
[2022-11-17] MEDS: ACETAMINOPHEN 325MG TABLET PO PRN (08:30)
[2022-11-17 12:00] VITALS: BP 118/91
[2022-11-17] MEDS: SULFAMETHOXAZOLE/TRIMETHOPRIM 800/160MG TABLET PO SCH (13:53)
[2022-11-17] MEDS: VISCOUS LIDOCAINE 2% 15 ML UDC MM SCH ×2 (13:57→22:00)
[2022-11-17] MEDS: MAGIC MOUTHWASH SSW SCH ×2 (13:57→22:04)
[2022-11-17] MEDS ORDERED: MAGIC MOUTHWASH SSW SCH (14:00)
[2022-11-17] MEDS: SODIUM CHLORIDE 0.9% 1,000 ML IV SCH (14:14)
[2022-11-17 16:00] VITALS: BP 127/84
[2022-11-17 20:00] VITALS: BP 128/93
[2022-11-17] MEDS: GUAIFENESIN-DM 200MG-20MG/10ML UDC PO PRN (21:49)
[2022-11-17] MEDS: ONDANSETRON HCL 4MG/2ML INJ IV PRN (22:11)
[2022-11-18] VITALS: BP 115/82
[2022-11-18] MEDS: HYDROCODONE/ACETAMINOPHEN 5/325MG TABLET PO PRN (03:42)
[2022-11-18 04:00] VITALS: BP 119/88
[2022-11-18] MEDS: NYSTATIN 100,000 UNITS/ML 5ML UDC SSW SCH ×4 (05:14→23:55)
[2022-11-18] MEDS: CEFAZOLIN 2,000 MG in DEXT 5% WATER 100 ML IV SCH ×3 (05:14→21:12)
[2022-11-18] MEDS: GABAPENTIN 300MG CAPSULE PO SCH ×3 (05:14→21:13)
[2022-11-18] MEDS: VISCOUS LIDOCAINE 2% 15 ML UDC MM SCH ×3 (05:15→21:27)
[2022-11-18] MEDS: MAGIC MOUTHWASH SSW SCH ×3 (05:17→21:22)
[2022-11-18 06:35] LABS: HEMOGLOBIN. 8.7 g/dL (14.0-18.0); MEAN CORPUSCULAR HEMOGLOBIN 31.6 pg (28.0-32.0); MEAN CORPUSCULAR VOLUME 94.7 fL (80.0-94.0); MEAN PLATELET VOLUME 6.7 fl (7.4-10.4); PLATELET 434 x1000/uL (130-400); RED BLOOD CELL COUNT 2.75 mill/uL (4.7-6.1); RED CELL DISTRIBUTION WIDTH 13.4 % (11.6-14.6)
[2022-11-18] MEDS: SODIUM CHLORIDE 0.9% 1,000 ML IV SCH ×2 (06:37→19:45)
[2022-11-18 08:24] LABS: PLATELET ESTIMATE INCREASED
[2022-11-18] MEDS: GUAIFENESIN-DM 200MG-20MG/10ML UDC PO PRN ×3 (08:40→21:13)
[2022-11-18] MEDS: GUAIFENESIN 600MG ER TABLET PO SCH ×2 (08:40→21:12)
[2022-11-18 12:00] VITALS: BP 122/82
[2022-11-18] MEDS: HYDROCODONE/ACETAMINOPHEN 10/325MG TABLET PO PRN (12:57)
[2022-11-18 16:00] VITALS: BP 125/83
[2022-11-18] MEDS: SULFAMETHOXAZOLE/TRIMETHOPRIM 800/160MG TABLET PO SCH (17:25)
[2022-11-18] MEDS: MORPHINE SULFATE 2 MG/ML CPJ (NOT FOR IM USE) IV PRN (17:31)
[2022-11-18 20:00] VITALS: BP 125/90
[2022-11-19] VITALS: BP 132/90
[2022-11-19] MEDS: ONDANSETRON HCL 4MG/2ML INJ IV PRN ×2 (00:38→23:06)
[2022-11-19] MEDS: MORPHINE SULFATE 2 MG/ML CPJ (NOT FOR IM USE) IV PRN ×2 (02:30→13:59)
[2022-11-19 04:00] VITALS: BP 131/95
[2022-11-19] MEDS: ACETAMINOPHEN 325MG TABLET PO PRN (05:46)
[2022-11-19] MEDS: VISCOUS LIDOCAINE 2% 15 ML UDC MM SCH ×3 (05:49→22:53)
[2022-11-19] MEDS: CEFAZOLIN 2,000 MG in DEXT 5% WATER 100 ML IV SCH ×3 (05:49→22:53)
[2022-11-19] MEDS: GABAPENTIN 300MG CAPSULE PO SCH ×3 (05:49→22:42)
[2022-11-19] MEDS: NYSTATIN 100,000 UNITS/ML 5ML UDC SSW SCH ×3 (05:50→18:55)
[2022-11-19] MEDS: MAGIC MOUTHWASH SSW SCH ×3 (05:50→22:53)
[2022-11-19] MEDS: SODIUM CHLORIDE 0.9% 1,000 ML IV SCH (08:15)
[2022-11-19] MEDS: GUAIFENESIN-DM 200MG-20MG/10ML UDC PO PRN (10:16)
[2022-11-19] MEDS: HYDROCODONE/ACETAMINOPHEN 10/325MG TABLET PO PRN ×2 (10:17→18:28)
[2022-11-19] MEDS: DOCUSATE SODIUM 100MG CAPSULE PO PRN (10:17)
[2022-11-19] MEDS: GUAIFENESIN 600MG ER TABLET PO SCH ×2 (13:23→22:42)
[2022-11-19] MEDS ORDERED: IPRATROPIUM/ALBUTEROL 0.5-3(2.5)MG/3ML NEB HHN PRN (16:45)
[2022-11-19] MEDS ORDERED: IPRATROPIUM BROMIDE (0.02%) 0.5MG/2.5ML NEB HHN PRN (16:45)
[2022-11-19] MEDS ORDERED: ALBUTEROL (0.083%) 2.5MG/3ML NEB HHN PRN (16:45)
[2022-11-19] MEDS: SULFAMETHOXAZOLE/TRIMETHOPRIM 800/160MG TABLET PO SCH (18:26)
[2022-11-19 20:00] VITALS: BP 138/89
[2022-11-19] MEDS: HYDROCODONE/ACETAMINOPHEN 5/325MG TABLET PO PRN (22:52)
[2022-11-20 04:00] VITALS: BP 142/65
[2022-11-20] MEDS: HYDROCODONE/ACETAMINOPHEN 10/325MG TABLET PO PRN ×3 (05:25→19:47)
[2022-11-20] MEDS: VISCOUS LIDOCAINE 2% 15 ML UDC MM SCH ×3 (05:26→22:00)
[2022-11-20] MEDS: NYSTATIN 100,000 UNITS/ML 5ML UDC SSW SCH ×4 (05:26→19:46)
[2022-11-20] MEDS: GABAPENTIN 300MG CAPSULE PO SCH ×3 (05:26→21:51)
[2022-11-20] MEDS: MAGIC MOUTHWASH SSW SCH ×3 (05:27→22:00)
[2022-11-20] MEDS: CEFAZOLIN 2,000 MG in DEXT 5% WATER 100 ML IV SCH ×3 (06:00→21:51)
[2022-11-20 06:20] LABS: HEMATOCRIT. 25.3 % (42.0-52.0); HEMOGLOBIN. 8.6 g/dL (14.0-18.0); MEAN CORPUSCULAR HEMOGLOBIN 32.2 pg (28.0-32.0); MEAN CORPUSCULAR VOLUME 95.2 fL (80.0-94.0); MEAN PLATELET VOLUME 6.8 fl (7.4-10.4); PLATELET 480 x1000/uL (130-400); RED BLOOD CELL COUNT 2.66 mill/uL (4.7-6.1); RED CELL DISTRIBUTION WIDTH 13.4 % (11.6-14.6)
[2022-11-20] MEDS: GUAIFENESIN 600MG ER TABLET PO SCH ×2 (09:00→21:51)
[2022-11-20] MEDS: SODIUM CHLORIDE 0.9% 1,000 ML IV SCH ×2 (09:15→21:51)
[2022-11-20] MEDS: ACETAMINOPHEN 325MG TABLET PO PRN (14:54)
[2022-11-20] MEDS: SULFAMETHOXAZOLE/TRIMETHOPRIM 800/160MG TABLET PO SCH (15:07)
[2022-11-20] MEDS: HYDROCODONE/ACETAMINOPHEN 5/325MG TABLET PO PRN (19:46)
[2022-11-20 20:00] VITALS: BP 138/87
[2022-11-20 20:59] LABS: PLATELET ESTIMATE INCREASED
[2022-11-21] VITALS: BP 125/83
[2022-11-21] MEDS: NYSTATIN 100,000 UNITS/ML 5ML UDC SSW SCH ×5 (00:28→21:18)
[2022-11-21] MEDS: MORPHINE SULFATE 2 MG/ML CPJ (NOT FOR IM USE) IV PRN ×4 (01:45→23:51)
[2022-11-21 04:00] VITALS: BP 125/92
[2022-11-21] MEDS: VISCOUS LIDOCAINE 2% 15 ML UDC MM SCH ×3 (05:41→21:19)
[2022-11-21] MEDS: CEFAZOLIN 2,000 MG in DEXT 5% WATER 100 ML IV SCH ×2 (05:41→18:02)
[2022-11-21] MEDS: MAGIC MOUTHWASH SSW SCH ×3 (05:42→21:39)
[2022-11-21] MEDS: ONDANSETRON HCL 4MG/2ML INJ IV PRN (05:47)
[2022-11-21] MEDS: GABAPENTIN 300MG CAPSULE PO SCH ×3 (05:58→21:18)
[2022-11-21 08:00] VITALS: BP 133/91
[2022-11-21] MEDS ORDERED: GUAIFENESIN-DM 200MG-20MG/10ML UDC PO NR (10:30)
[2022-11-21] MEDS: SODIUM CHLORIDE 0.9% 1,000 ML IV SCH (10:59)
[2022-11-21 12:00] VITALS: BP 119/83
[2022-11-21] MEDS ORDERED: SODIUM POLYSTYRENE SULFONATE 15 G/60 ML BOT PO NR (13:00)
[2022-11-21 16:00] VITALS: BP 139/88
[2022-11-21 20:00] VITALS: BP 135/98
[2022-11-21] MEDS: FLUCONAZOLE 100MG TABLET PO SCH (21:18)
[2022-11-21] MEDS: HYDROCODONE/ACETAMINOPHEN 10/325MG TABLET PO PRN (21:41)
[2022-11-22] VITALS: BP 114/81
[2022-11-22 04:00] VITALS: BP 125/86
[2022-11-22] MEDS: CEFAZOLIN 2,000 MG in DEXT 5% WATER 100 ML IV SCH ×3 (06:00→17:22)
[2022-11-22 06:28] LABS: HEMOGLOBIN. 8.3 g/dL (14.0-18.0); MEAN CORPUSCULAR HEMOGLOBIN 32.5 pg (28.0-32.0); MEAN CORPUSCULAR VOLUME 94.4 fL (80.0-94.0); MEAN PLATELET VOLUME 6.5 fl (7.4-10.4); PLATELET 509 x1000/uL (130-400); RED BLOOD CELL COUNT 2.54 mill/uL (4.7-6.1); RED CELL DISTRIBUTION WIDTH 13.8 % (11.6-14.6)
[2022-11-22] MEDS: NYSTATIN 100,000 UNITS/ML 5ML UDC SSW SCH ×3 (06:43→17:18)
[2022-11-22] MEDS: GABAPENTIN 300MG CAPSULE PO SCH ×3 (06:43→22:02)
[2022-11-22] MEDS: MAGIC MOUTHWASH SSW SCH ×3 (06:44→22:39)
[2022-11-22] MEDS: VISCOUS LIDOCAINE 2% 15 ML UDC MM SCH ×3 (06:44→22:39)
[2022-11-22] MEDS: SODIUM CHLORIDE 0.9% 1,000 ML IV SCH ×2 (06:45→16:55)
[2022-11-22] MEDS: HYDROCODONE/ACETAMINOPHEN 10/325MG TABLET PO PRN ×3 (07:00→23:36)
[2022-11-22] MEDS: ATOVAQUONE 750MG/5ML PACKET PO SCH (07:02)
[2022-11-22 07:42] LABS: CHLORIDE 105 mEq/L (98-107)
[2022-11-22 08:00] VITALS: BP 124/70
[2022-11-22] MEDS: AZITHROMYCIN 600 MG TABLET PO SCH (08:18)
[2022-11-22 12:00] VITALS: BP 140/77
[2022-11-22 13:10] LABS: PLATELET ESTIMATE INCREASED
[2022-11-22 16:00] VITALS: BP 130/74
[2022-11-22] MEDS: MORPHINE SULFATE 2 MG/ML CPJ (NOT FOR IM USE) IV PRN (17:30)
[2022-11-22 20:00] VITALS: BP 144/94
[2022-11-22] MEDS: FLUCONAZOLE 100MG TABLET PO SCH (22:02)
[2022-11-22] MEDS: ACETAMINOPHEN 325MG TABLET PO PRN (22:03)
[2022-11-22 22:28] LABS: CREATINE KINASE 35 IU/L (39-308)
[2022-11-22] MEDS: ONDANSETRON HCL 4MG/2ML INJ IV PRN (23:35)
[2022-11-23] VITALS: BP 138/86
[2022-11-23] MEDS: SODIUM CHLORIDE 0.9% 1,000 ML IV SCH ×3 (00:06→22:00)
[2022-11-23] MEDS: NYSTATIN 100,000 UNITS/ML 5ML UDC SSW SCH ×4 (00:06→18:00)
[2022-11-23 04:00] VITALS: BP 128/86
[2022-11-23] MEDS: GABAPENTIN 300MG CAPSULE PO SCH ×3 (05:44→22:00)
[2022-11-23] MEDS: MAGIC MOUTHWASH SSW SCH ×3 (05:45→22:00)
[2022-11-23] MEDS: CEFAZOLIN 2,000 MG in DEXT 5% WATER 100 ML IV SCH ×2 (05:45→18:26)
[2022-11-23] MEDS: VISCOUS LIDOCAINE 2% 15 ML UDC MM SCH ×3 (05:45→22:00)
[2022-11-23 05:58] LABS: HEMATOCRIT. 22.2 % (42.0-52.0); HEMOGLOBIN. 7.4 g/dL (14.0-18.0); MEAN CORPUSCULAR HEMOGLOBIN 31.6 pg (28.0-32.0); MEAN CORPUSCULAR VOLUME 94.7 fL (80.0-94.0); MEAN PLATELET VOLUME 6.4 fl (7.4-10.4); PLATELET 470 x1000/uL (130-400); RED BLOOD CELL COUNT 2.35 mill/uL (4.7-6.1); RED CELL DISTRIBUTION WIDTH 13.8 % (11.6-14.6)
[2022-11-23] MEDS: ATOVAQUONE 750MG/5ML PACKET PO SCH (07:15)
[2022-11-23 08:00] VITALS: BP 138/86
[2022-11-23 08:45] LABS: PHOSPHORUS 3.4 mg/dL (2.5-4.9)
[2022-11-23] MEDS ORDERED: MAGNESIUM 2 G PREMIX 50 ML IV NR ×2 (09:30→10:30)
[2022-11-23 12:00] VITALS: BP 131/102
[2022-11-23 13:37] LABS: PLATELET ESTIMATE INCREASED
[2022-11-23] MEDS: CLONIDINE 0.1MG TABLET PO PRN (13:45)
[2022-11-23 16:00] VITALS: BP 126/86
[2022-11-23] MEDS ORDERED: IPRATROPIUM BROMIDE (0.02%) 0.5MG/2.5ML NEB HHN PRN (16:00)
[2022-11-23] MEDS ORDERED: ALBUTEROL (0.083%) 2.5MG/3ML NEB HHN SCH (16:00)
[2022-11-23] MEDS ORDERED: NALOXONE HCL 0.4MG/ML VIAL IV PRN (16:00)
[2022-11-23] MEDS ORDERED: ALBUTEROL (0.083%) 2.5MG/3ML NEB HHN PRN (16:15)
[2022-11-23] MEDS: HYDROCODONE/ACETAMINOPHEN 5/325MG TABLET PO PRN (16:32)
[2022-11-23] MEDS: FLUCONAZOLE 100MG TABLET PO SCH (20:00)
[2022-11-23] MEDS: MORPHINE SULFATE 2 MG/ML CPJ (NOT FOR IM USE) IV PRN (20:16)
[2022-11-24] VITALS: BP 144/94
[2022-11-24] MEDS: HYDROCODONE/ACETAMINOPHEN 5/325MG TABLET PO PRN (00:07)
[2022-11-24] MEDS: NYSTATIN 100,000 UNITS/ML 5ML UDC SSW SCH ×5 (00:16→23:19)
[2022-11-24 04:00] VITALS: BP 144/96
[2022-11-24] MEDS: MORPHINE SULFATE 2 MG/ML CPJ (NOT FOR IM USE) IV PRN ×4 (05:20→23:36)
[2022-11-24] MEDS: MAGIC MOUTHWASH SSW SCH ×3 (07:00→23:55)
[2022-11-24] MEDS: VISCOUS LIDOCAINE 2% 15 ML UDC MM SCH ×3 (07:00→22:00)
[2022-11-24] MEDS: GABAPENTIN 300MG CAPSULE PO SCH ×3 (07:00→23:20)
[2022-11-24] MEDS: SODIUM CHLORIDE 0.9% 1,000 ML IV SCH ×2 (07:36→18:15)
[2022-11-24] MEDS: CEFAZOLIN 2,000 MG in DEXT 5% WATER 100 ML IV SCH ×2 (07:54→18:15)
[2022-11-24 08:00] VITALS: BP 138/95
[2022-11-24] MEDS: ATOVAQUONE 750MG/5ML PACKET PO SCH (08:09)
[2022-11-24 08:15] LABS: HEMOGLOBIN. 8.7 g/dL (14.0-18.0); MEAN CORPUSCULAR HEMOGLOBIN 31.9 pg (28.0-32.0); MEAN CORPUSCULAR VOLUME 95.6 fL (80.0-94.0); MEAN PLATELET VOLUME 6.2 fl (7.4-10.4); PLATELET 472 x1000/uL (130-400); RED BLOOD CELL COUNT 2.71 mill/uL (4.7-6.1); RED CELL DISTRIBUTION WIDTH 13.9 % (11.6-14.6)
[2022-11-24 08:27] LABS: PHOSPHORUS 3.5 mg/dL (2.5-4.9)
[2022-11-24 12:00] VITALS: BP 157/103
[2022-11-24 13:21] LABS: PLATELET ESTIMATE INCREASED
[2022-11-24 16:00] VITALS: BP 146/107
[2022-11-24 20:00] VITALS: BP 136/94
[2022-11-24] MEDS: FLUCONAZOLE 100MG TABLET PO SCH (23:20)
[2022-11-25] MEDS: SODIUM CHLORIDE 0.9% 1,000 ML IV SCH ×2 (04:03→23:31)
[2022-11-25 05:49] LABS: BASOPHILS % 0.7 % (0.0-2.0); EOSINOPHILS % 5.8 % (0.0-5.0); HEMOGLOBIN. 9.3 g/dL (14.0-18.0); LYMPHOCYTES % 12.2 % (20.0-50.0); MEAN CORPUSCULAR VOLUME 93.5 fL (80.0-94.0); MEAN PLATELET VOLUME 6.3 fl (7.4-10.4); MONOCYTES % 14.1 % (2.0-8.0); NEUTROPHILS % 67.2 % (40.0-76.0); PLATELET 510 x1000/uL (130-400); RED BLOOD CELL COUNT 2.89 mill/uL (4.7-6.1)
[2022-11-25] MEDS: MORPHINE SULFATE 2 MG/ML CPJ (NOT FOR IM USE) IV PRN ×2 (05:55→12:39)
[2022-11-25] MEDS: VISCOUS LIDOCAINE 2% 15 ML UDC MM SCH ×3 (06:00→22:00)
[2022-11-25 06:15] LABS: PHOSPHORUS 2.9 mg/dL (2.5-4.9)
[2022-11-25] MEDS: MAGIC MOUTHWASH SSW SCH ×3 (07:04→22:00)
[2022-11-25] MEDS: GABAPENTIN 300MG CAPSULE PO SCH ×3 (07:07→22:18)
[2022-11-25] MEDS: CEFAZOLIN 2,000 MG in DEXT 5% WATER 100 ML IV SCH ×2 (07:07→17:40)
[2022-11-25] MEDS: ATOVAQUONE 750MG/5ML PACKET PO SCH (07:08)
[2022-11-25] MEDS: NYSTATIN 100,000 UNITS/ML 5ML UDC SSW SCH ×3 (07:08→17:42)
[2022-11-25 11:03] VITALS: BP 142/101
[2022-11-25 12:32] VITALS: BP 138/95
[2022-11-25 16:26] VITALS: BP 158/105
[2022-11-25] MEDS: HYDROCODONE/ACETAMINOPHEN 10/325MG TABLET PO PRN ×2 (16:27→23:26)
[2022-11-25 20:00] VITALS: BP 129/88
[2022-11-25] MEDS: FLUCONAZOLE 100MG TABLET PO SCH (22:17)
[2022-11-26] VITALS: BP 151/108
[2022-11-26 04:00] VITALS: BP 141/101
[2022-11-26] MEDS: CEFAZOLIN 2,000 MG in DEXT 5% WATER 100 ML IV SCH ×2 (05:21→17:40)
[2022-11-26 05:55] LABS: HEMATOCRIT. 24.7 % (42.0-52.0); HEMOGLOBIN. 8.3 g/dL (14.0-18.0); MEAN CORPUSCULAR HEMOGLOBIN 31.3 pg (28.0-32.0); MEAN CORPUSCULAR VOLUME 93.3 fL (80.0-94.0); MEAN PLATELET VOLUME 6.4 fl (7.4-10.4); PLATELET 397 x1000/uL (130-400); RED BLOOD CELL COUNT 2.65 mill/uL (4.7-6.1); RED CELL DISTRIBUTION WIDTH 13.7 % (11.6-14.6)
[2022-11-26] MEDS: NYSTATIN 100,000 UNITS/ML 5ML UDC SSW SCH ×4 (06:00→17:40)
[2022-11-26] MEDS: MAGIC MOUTHWASH SSW SCH ×3 (06:00→22:30)
[2022-11-26] MEDS: VISCOUS LIDOCAINE 2% 15 ML UDC MM SCH ×3 (06:00→22:29)
[2022-11-26] MEDS: GABAPENTIN 300MG CAPSULE PO SCH ×3 (06:23→22:22)
[2022-11-26] MEDS: HYDROCODONE/ACETAMINOPHEN 10/325MG TABLET PO PRN ×2 (06:27→17:51)
[2022-11-26] MEDS: CLONIDINE 0.1MG TABLET PO PRN (06:53)
[2022-11-26] MEDS: ATOVAQUONE 750MG/5ML PACKET PO SCH (07:15)
[2022-11-26 08:00] VITALS: BP_SYST 110; BP_SYST 138; BP_DIAS 79; BP_DIAS 88
[2022-11-26 08:39] LABS: PHOSPHORUS 3.6 mg/dL (2.5-4.9)
[2022-11-26] MEDS: SODIUM CHLORIDE 0.9% 1,000 ML IV SCH (11:36)
[2022-11-26 12:00] VITALS: BP_SYST 110; BP_SYST 123; BP_DIAS 79; BP_DIAS 83
[2022-11-26 13:03] LABS: PLATELET ESTIMATE NORMAL
[2022-11-26 15:59] VITALS: BP 112/74
[2022-11-26 20:00] VITALS: BP 146/99
[2022-11-26] MEDS: FLUCONAZOLE 100MG TABLET PO SCH (20:28)
[2022-11-26] MEDS: ONDANSETRON HCL 4MG/2ML INJ IV PRN (20:34)
[2022-11-27] VITALS: BP 125/91
[2022-11-27] MEDS: NYSTATIN 100,000 UNITS/ML 5ML UDC SSW SCH ×4 (00:26→17:51)
[2022-11-27] MEDS: SODIUM CHLORIDE 0.9% 1,000 ML IV SCH ×2 (00:27→21:07)
[2022-11-27 04:00] VITALS: BP 132/95
[2022-11-27] MEDS: MAGIC MOUTHWASH SSW SCH ×3 (06:01→21:13)
[2022-11-27] MEDS: CEFAZOLIN 2,000 MG in DEXT 5% WATER 100 ML IV SCH ×2 (06:02→17:51)
[2022-11-27] MEDS: VISCOUS LIDOCAINE 2% 15 ML UDC MM SCH ×3 (06:02→21:13)
[2022-11-27] MEDS: GABAPENTIN 300MG CAPSULE PO SCH ×3 (06:02→21:06)
[2022-11-27] MEDS: ATOVAQUONE 750MG/5ML PACKET PO SCH (06:43)
[2022-11-27] MEDS: HYDROCODONE/ACETAMINOPHEN 5/325MG TABLET PO PRN (06:43)
[2022-11-27 08:00] VITALS: BP 124/80
[2022-11-27 12:00] VITALS: BP 127/88
[2022-11-27] MEDS: HYDROCODONE/ACETAMINOPHEN 10/325MG TABLET PO PRN ×2 (12:59→19:47)
[2022-11-27 16:00] VITALS: BP 118/64
[2022-11-27 16:17] LABS: BASOPHILS % 0.9 % (0.0-2.0); EOSINOPHILS % 5.7 % (0.0-5.0); HEMATOCRIT. 24.5 % (42.0-52.0); HEMOGLOBIN. 8.3 g/dL (14.0-18.0); LYMPHOCYTES % 15.4 % (20.0-50.0); MEAN CORPUSCULAR HEMOGLOBIN 31.7 pg (28.0-32.0); MEAN PLATELET VOLUME 6.5 fl (7.4-10.4); MONOCYTES % 10.2 % (2.0-8.0); NEUTROPHILS % 67.8 % (40.0-76.0); PLATELET 386 x1000/uL (130-400); RED BLOOD CELL COUNT 2.61 mill/uL (4.7-6.1); RED CELL DISTRIBUTION WIDTH 14.1 % (11.6-14.6)
[2022-11-27 16:42] LABS: PHOSPHORUS 3.6 mg/dL (2.5-4.9)
[2022-11-27] MEDS: GUAIFENESIN-DM 200MG-20MG/10ML UDC PO PRN (19:56)
[2022-11-27 20:00] VITALS: BP 137/96
[2022-11-27] MEDS: FLUCONAZOLE 100MG TABLET PO SCH (21:06)
[2022-11-28] VITALS: BP 141/99
[2022-11-28 04:00] VITALS: BP 138/87
[2022-11-28] MEDS: MAGIC MOUTHWASH SSW SCH ×3 (05:28→21:22)
[2022-11-28] MEDS: GABAPENTIN 300MG CAPSULE PO SCH ×2 (05:28→14:29)
[2022-11-28] MEDS: CEFAZOLIN 2,000 MG in DEXT 5% WATER 100 ML IV SCH ×2 (05:28→18:59)
[2022-11-28] MEDS: NYSTATIN 100,000 UNITS/ML 5ML UDC SSW SCH ×4 (05:28→18:58)
[2022-11-28] MEDS: VISCOUS LIDOCAINE 2% 15 ML UDC MM SCH ×3 (05:29→21:22)
[2022-11-28] MEDS: MORPHINE SULFATE 2 MG/ML CPJ (NOT FOR IM USE) IV PRN ×3 (05:31→19:56)
[2022-11-28 06:28] LABS: BASOPHILS % 0.4 % (0.0-2.0); EOSINOPHILS % 5.6 % (0.0-5.0); HEMATOCRIT. 29.8 % (42.0-52.0); HEMOGLOBIN. 9.9 g/dL (14.0-18.0); LYMPHOCYTES % 12.6 % (20.0-50.0); MEAN CORPUSCULAR HEMOGLOBIN 31.3 pg (28.0-32.0); MEAN CORPUSCULAR VOLUME 94.1 fL (80.0-94.0); MEAN PLATELET VOLUME 6.5 fl (7.4-10.4); MONOCYTES % 10.5 % (2.0-8.0); NEUTROPHILS % 70.9 % (40.0-76.0); PLATELET 370 x1000/uL (130-400); RED BLOOD CELL COUNT 3.16 mill/uL (4.7-6.1)
[2022-11-28 06:44] LABS: PHOSPHORUS 3.7 mg/dL (2.5-4.9)
[2022-11-28] MEDS: ATOVAQUONE 750MG/5ML PACKET PO SCH (06:51)
[2022-11-28 08:00] VITALS: BP 144/100
[2022-11-28 12:00] VITALS: BP 128/93
[2022-11-28 16:00] VITALS: BP 129/89
[2022-11-28 20:00] VITALS: BP 152/92
[2022-11-28] MEDS: FLUCONAZOLE 100MG TABLET PO SCH (21:22)
[2022-11-28] MEDS: HYDROCODONE/ACETAMINOPHEN 10/325MG TABLET PO PRN (22:37)
[2022-11-29] MEDS: HYDROCODONE/ACETAMINOPHEN 5/325MG TABLET PO PRN (02:04)
[2022-11-29] MEDS: CEFAZOLIN 2,000 MG in DEXT 5% WATER 100 ML IV SCH ×2 (05:43→17:53)
[2022-11-29] MEDS: NYSTATIN 100,000 UNITS/ML 5ML UDC SSW SCH ×4 (05:43→17:53)
[2022-11-29] MEDS: MAGIC MOUTHWASH SSW SCH ×3 (05:44→21:28)
[2022-11-29] MEDS: VISCOUS LIDOCAINE 2% 15 ML UDC MM SCH ×3 (05:44→22:00)
[2022-11-29 05:49] LABS: MEAN CORPUSCULAR HEMOGLOBIN 31.6 pg (28.0-32.0); MEAN CORPUSCULAR VOLUME 94.7 fL (80.0-94.0); MEAN PLATELET VOLUME 6.9 fl (7.4-10.4); PLATELET 368 x1000/uL (130-400); RED BLOOD CELL COUNT 2.53 mill/uL (4.7-6.1); RED CELL DISTRIBUTION WIDTH 13.8 % (11.6-14.6)
[2022-11-29 06:47] LABS: PHOSPHORUS 3.7 mg/dL (2.5-4.9)
[2022-11-29] MEDS: HYDROCODONE/ACETAMINOPHEN 10/325MG TABLET PO PRN ×2 (07:06→21:30)
[2022-11-29 07:17] LABS: PLATELET ESTIMATE NORMAL
[2022-11-29 08:00] VITALS: BP 127/88
[2022-11-29] MEDS: ATOVAQUONE 750MG/5ML PACKET PO SCH (08:37)
[2022-11-29] MEDS: GABAPENTIN 300MG CAPSULE PO SCH (08:37)
[2022-11-29] MEDS: AZITHROMYCIN 600 MG TABLET PO SCH (08:37)
[2022-11-29 12:00] VITALS: BP 124/85
[2022-11-29 16:00] VITALS: BP 122/84
[2022-11-29 20:00] VITALS: BP 132/93
[2022-11-29] MEDS: FLUCONAZOLE 100MG TABLET PO SCH (21:29)
[2022-11-30] VITALS: BP 128/90
[2022-11-30 04:00] VITALS: BP 132/92
[2022-11-30] MEDS: MORPHINE SULFATE 2 MG/ML CPJ (NOT FOR IM USE) IV PRN ×3 (04:06→20:22)
[2022-11-30] MEDS: CEFAZOLIN 2,000 MG in DEXT 5% WATER 100 ML IV SCH ×2 (05:13→18:00)
[2022-11-30] MEDS: MAGIC MOUTHWASH SSW SCH ×3 (05:13→22:00)
[2022-11-30] MEDS: NYSTATIN 100,000 UNITS/ML 5ML UDC SSW SCH ×4 (05:13→18:00)
[2022-11-30] MEDS: VISCOUS LIDOCAINE 2% 15 ML UDC MM SCH ×3 (05:13→22:00)
[2022-11-30] MEDS: ATOVAQUONE 750MG/5ML PACKET PO SCH ×2 (07:15→08:27)
[2022-11-30 08:00] VITALS: BP 134/95
[2022-11-30] MEDS: GABAPENTIN 300MG CAPSULE PO SCH (08:26)
[2022-11-30 12:00] VITALS: BP 136/92
[2022-11-30] MEDS: HYDROCODONE/ACETAMINOPHEN 10/325MG TABLET PO PRN (14:22)
[2022-11-30 16:00] VITALS: BP 130/96
[2022-11-30 20:00] VITALS: BP 136/90
[2022-11-30] MEDS: FLUCONAZOLE 100MG TABLET PO SCH (20:19)
[2022-11-30 21:35] LABS: BASOPHILS % 0.5 % (0.0-2.0); EOSINOPHILS % 8.7 % (0.0-5.0); HEMATOCRIT. 30.5 % (42.0-52.0); HEMOGLOBIN. 10.2 g/dL (14.0-18.0); LYMPHOCYTES % 16.7 % (20.0-50.0); MEAN CORPUSCULAR HEMOGLOBIN 31.6 pg (28.0-32.0); MEAN CORPUSCULAR VOLUME 94.3 fL (80.0-94.0); MONOCYTES % 14.9 % (2.0-8.0); NEUTROPHILS % 59.2 % (40.0-76.0); PLATELET 380 x1000/uL (130-400); RED BLOOD CELL COUNT 3.23 mill/uL (4.7-6.1); RED CELL DISTRIBUTION WIDTH 14.5 % (11.6-14.6)
[2022-11-30 21:43] LABS: PHOSPHORUS 4.2 mg/dL (2.5-4.9)
[2022-12-01] VITALS: BP 139/99
[2022-12-01] MEDS: HYDROCODONE/ACETAMINOPHEN 10/325MG TABLET PO PRN ×3 (00:23→21:08)
[2022-12-01 04:00] VITALS: BP 140/99
[2022-12-01] MEDS: CEFAZOLIN 2,000 MG in DEXT 5% WATER 100 ML IV SCH ×2 (05:32→17:19)
[2022-12-01] MEDS: VISCOUS LIDOCAINE 2% 15 ML UDC MM SCH ×3 (06:00→22:35)
[2022-12-01] MEDS: MAGIC MOUTHWASH SSW SCH ×3 (06:00→22:35)
[2022-12-01] MEDS: NYSTATIN 100,000 UNITS/ML 5ML UDC SSW SCH ×4 (06:00→17:28)
[2022-12-01] MEDS: ATOVAQUONE 750MG/5ML PACKET PO SCH (07:15)
[2022-12-01 08:45] VITALS: BP 119/85
[2022-12-01 08:45] LABS: BASOPHILS % 0.6 % (0.0-2.0); EOSINOPHILS % 11.3 % (0.0-5.0); HEMATOCRIT. 27.8 % (42.0-52.0); HEMOGLOBIN. 9.1 g/dL (14.0-18.0); MEAN CORPUSCULAR HEMOGLOBIN 31.1 pg (28.0-32.0); MEAN CORPUSCULAR VOLUME 95.1 fL (80.0-94.0); MEAN PLATELET VOLUME 7.2 fl (7.4-10.4); MONOCYTES % 12.3 % (2.0-8.0); NEUTROPHILS % 61.8 % (40.0-76.0); PLATELET 388 x1000/uL (130-400); RED BLOOD CELL COUNT 2.92 mill/uL (4.7-6.1); RED CELL DISTRIBUTION WIDTH 14.5 % (11.6-14.6)
[2022-12-01] MEDS: GABAPENTIN 300MG CAPSULE PO SCH (08:58)
[2022-12-01 09:21] LABS: PHOSPHORUS 4.1 mg/dL (2.5-4.9)
[2022-12-01] MEDS: ENOXAPARIN 30MG/0.3ML SYR SUBCUT SCH (10:30)
[2022-12-01 12:00] VITALS: BP 131/92
[2022-12-01 15:28] VITALS: BP 133/95
[2022-12-01] MEDS ORDERED: SIMETHICONE 80MG TABLET CHEW PO PRN (16:15)
[2022-12-01] MEDS: SODIUM CHLORIDE 0.9% 1,000 ML IV SCH (17:19)
[2022-12-01 20:00] VITALS: BP 125/84
[2022-12-01] MEDS: FLUCONAZOLE 100MG TABLET PO SCH (21:04)
[2022-12-02] VITALS: BP 118/66
[2022-12-02] MEDS: NYSTATIN 100,000 UNITS/ML 5ML UDC SSW SCH ×5 (00:33→23:40)
[2022-12-02 04:00] VITALS: BP 123/86
[2022-12-02] MEDS: CEFAZOLIN 2,000 MG in DEXT 5% WATER 100 ML IV SCH ×2 (06:13→17:09)
[2022-12-02] MEDS: VISCOUS LIDOCAINE 2% 15 ML UDC MM SCH ×3 (06:13→21:40)
[2022-12-02] MEDS: MAGIC MOUTHWASH SSW SCH ×3 (06:14→21:40)
[2022-12-02] MEDS: ATOVAQUONE 750MG/5ML PACKET PO SCH (06:15)
[2022-12-02 06:41] LABS: PHOSPHORUS 3.8 mg/dL (2.5-4.9)
[2022-12-02 07:13] LABS: BASOPHILS % 0.8 % (0.0-2.0); EOSINOPHILS % 10.3 % (0.0-5.0); HEMATOCRIT. 31.7 % (42.0-52.0); HEMOGLOBIN. 10.6 g/dL (14.0-18.0); MEAN CORPUSCULAR HEMOGLOBIN 31.2 pg (28.0-32.0); MEAN CORPUSCULAR VOLUME 93.7 fL (80.0-94.0); MEAN PLATELET VOLUME 7.3 fl (7.4-10.4); MONOCYTES % 10.5 % (2.0-8.0); NEUTROPHILS % 69.4 % (40.0-76.0); PLATELET 483 x1000/uL (130-400); RED BLOOD CELL COUNT 3.38 mill/uL (4.7-6.1); RED CELL DISTRIBUTION WIDTH 14.2 % (11.6-14.6)
[2022-12-02 08:48] VITALS: BP 126/95
[2022-12-02 09:46] LABS: CLARITY URINE CLEAR (CLEAR); COLOR URINE YELLOW (YELLOW); KETONES URINE NEGATIVE (NEGATIVE); LEUKOCYTE ESTERASE URINE NEGATIVE (NEGATIVE); NITRITE URINE NEGATIVE (NEGATIVE); OCCULT BLOOD URINE NEGATIVE (NEGATIVE); PROTEIN URINE 2+ (NEGATIVE); SPECIFIC GRAVITY URINE 1.011 (1.005-1.030); UROBILINOGEN URINE 0.2 E.U./dL (0.2-1.0)
[2022-12-02] MEDS: SODIUM CHLORIDE 0.9% 1,000 ML IV SCH ×2 (09:48→23:39)
[2022-12-02] MEDS: ENOXAPARIN 30MG/0.3ML SYR SUBCUT SCH (09:48)
[2022-12-02 12:35] VITALS: BP 119/86
[2022-12-02 15:53] VITALS: BP 121/90
[2022-12-02] MEDS: HYDROCODONE/ACETAMINOPHEN 10/325MG TABLET PO PRN (17:12)
[2022-12-02 20:00] VITALS: BP 118/85
[2022-12-02] MEDS: FLUCONAZOLE 100MG TABLET PO SCH (21:31)
[2022-12-02] MEDS: MORPHINE SULFATE 2 MG/ML CPJ (NOT FOR IM USE) IV PRN (21:32)
[2022-12-02] MEDS ORDERED: SODIUM POLYSTYRENE SULFONATE 15 G/60 ML BOT PO NR (23:32)
[2022-12-03] VITALS: BP 125/66
[2022-12-03 04:00] VITALS: BP 125/82
[2022-12-03] MEDS: CEFAZOLIN 2,000 MG in DEXT 5% WATER 100 ML IV SCH ×2 (06:06→18:25)
[2022-12-03] MEDS: NYSTATIN 100,000 UNITS/ML 5ML UDC SSW SCH ×3 (06:06→18:00)
[2022-12-03] MEDS: MAGIC MOUTHWASH SSW SCH ×3 (06:06→22:00)
[2022-12-03] MEDS: ATOVAQUONE 750MG/5ML PACKET PO SCH (06:17)
[2022-12-03] MEDS: VISCOUS LIDOCAINE 2% 15 ML UDC MM SCH ×3 (06:20→20:24)
[2022-12-03] MEDS: SODIUM CHLORIDE 0.9% 1,000 ML IV SCH ×2 (09:51→19:30)
[2022-12-03] MEDS: ENOXAPARIN 30MG/0.3ML SYR SUBCUT SCH (11:26)
[2022-12-03 11:28] VITALS: BP 133/95
[2022-12-03] MEDS ORDERED: NALOXONE HCL 0.4MG/ML VIAL IV PRN (12:45)
[2022-12-03 16:48] VITALS: BP 141/100
[2022-12-03 19:12] LABS: BG BASE EXCESS -1.9 mmol/L (-2.0-2.0); BG CARBOXYHEMOGLOBIN 0.3 % (0.5-1.5); BG DEOXYHEMOGLOBIN 4.4 % (0.0-5.0); BG FRACTION INSPIRED OXYGEN 21; BG METHEMOGLOBIN 0.1 % (0.0-1.5); BG OXYGEN SATURATION 95.6 % (92.0-98.5); BG OXYHEMOGLOBIN 95.2 % (94.0-97.0); BG PH 7.429 (7.350-7.450); BG PO2 82.6 mmHg (75.0-100.0); BG SAMPLE SITE RIGHT BRACHIAL; BG TOTAL HEMOGLOBIN 8.8 g/dL (12.0-18.0); BG VENT MODE ROOM AIR
[2022-12-03 20:00] VITALS: BP 141/91
[2022-12-03] MEDS: FLUCONAZOLE 100MG TABLET PO SCH ×2 (20:00→20:24)
[2022-12-04] VITALS: BP 145/105
[2022-12-04 04:15] VITALS: BP 142/85
[2022-12-04] MEDS: HYDROCODONE/ACETAMINOPHEN 10/325MG TABLET PO PRN ×2 (04:16→11:25)
[2022-12-04] MEDS: SODIUM CHLORIDE 0.9% 1,000 ML IV SCH ×2 (05:30→14:52)
[2022-12-04] MEDS: CEFAZOLIN 2,000 MG in DEXT 5% WATER 100 ML IV SCH (05:51)
[2022-12-04] MEDS: VISCOUS LIDOCAINE 2% 15 ML UDC MM SCH ×3 (06:00→22:00)
[2022-12-04] MEDS: NYSTATIN 100,000 UNITS/ML 5ML UDC SSW SCH ×3 (06:00→11:25)
[2022-12-04] MEDS: MAGIC MOUTHWASH SSW SCH ×4 (06:00→22:00)
[2022-12-04] MEDS: ATOVAQUONE 750MG/5ML PACKET PO SCH (07:15)
[2022-12-04 08:00] VITALS: BP 129/95
[2022-12-04 08:10] LABS: *CREATININE RANDOM URINE 62.8 mg/dL (Not Estab.); MICROALBUMIN RANDOM URINE 438.3 ug/mL (Not Estab.)
[2022-12-04] MEDS: ENOXAPARIN 30MG/0.3ML SYR SUBCUT SCH (11:24)
[2022-12-04] MEDS: ONDANSETRON HCL 4MG/2ML INJ IV PRN (11:25)
[2022-12-04 12:00] VITALS: BP 101/74
[2022-12-04] MEDS ORDERED: VANCOMYCIN 1G PREMIX 200 ML IV NR (14:30)
[2022-12-04 16:00] VITALS: BP 100/70
[2022-12-04 20:00] VITALS: BP 125/89
[2022-12-04] MEDS: FLUCONAZOLE 100MG TABLET PO SCH (20:00)
[2022-12-04] MEDS: MORPHINE SULFATE 2 MG/ML CPJ (NOT FOR IM USE) IV PRN (20:02)
[2022-12-04] MEDS ORDERED: IPRATROPIUM/ALBUTEROL 0.5-3(2.5)MG/3ML NEB HHN PRN (22:30)
[2022-12-04] MEDS ORDERED: IPRATROPIUM BROMIDE (0.02%) 0.5MG/2.5ML NEB HHN PRN (22:45)
[2022-12-04] MEDS ORDERED: ALBUTEROL (0.083%) 2.5MG/3ML NEB HHN PRN (22:45)
[2022-12-05] VITALS: BP 129/96
[2022-12-05] MEDS: SODIUM CHLORIDE 0.9% 1,000 ML IV SCH ×3 (01:30→21:30)
[2022-12-05 04:00] VITALS: BP 108/78
[2022-12-05] MEDS: HYDROCODONE/ACETAMINOPHEN 10/325MG TABLET PO PRN (04:01)
[2022-12-05] MEDS ORDERED: PANTOPRAZOLE 40MG DR TABLET PO NR (05:45)
[2022-12-05] MEDS: VISCOUS LIDOCAINE 2% 15 ML UDC MM SCH ×3 (05:57→22:00)
[2022-12-05] MEDS: MAGIC MOUTHWASH SSW SCH ×3 (05:57→22:00)
[2022-12-05] MEDS: ATOVAQUONE 750MG/5ML PACKET PO SCH (07:15)
[2022-12-05 08:00] VITALS: BP 107/72
[2022-12-05] MEDS: ENOXAPARIN 30MG/0.3ML SYR SUBCUT SCH (11:00)
[2022-12-05 12:00] VITALS: BP 128/90
[2022-12-05] MEDS ORDERED: VANCOMYCIN 500MG PREMIX 100 ML IV SCH (14:00)
[2022-12-05 16:00] VITALS: BP 109/74
[2022-12-05 16:31] LABS: HEMATOCRIT. 23.9 % (42.0-52.0); MEAN CORPUSCULAR HEMOGLOBIN 31.4 pg (28.0-32.0); MEAN CORPUSCULAR VOLUME 93.9 fL (80.0-94.0); MEAN PLATELET VOLUME 7.1 fl (7.4-10.4); PLATELET 445 x1000/uL (130-400); RED BLOOD CELL COUNT 2.55 mill/uL (4.7-6.1); RED CELL DISTRIBUTION WIDTH 14.1 % (11.6-14.6)
[2022-12-05 16:33] LABS: CHLORIDE 108 mEq/L (98-107); PARTIAL THROMBOPLASTIN TIME 38.3 sec (23.4-31.0); PROTHROMBIN TIME 11.1 sec (9.6-11.0)
[2022-12-05 16:41] LABS: PHOSPHORUS 3.7 mg/dL (2.5-4.9)
[2022-12-05 20:00] VITALS: BP 129/88
[2022-12-05] MEDS: FLUCONAZOLE 100MG TABLET PO SCH (20:00)
[2022-12-05 21:19] LABS: PLATELET ESTIMATE INCREASED
[2022-12-06 04:00] VITALS: BP 136/93
[2022-12-06] MEDS: VISCOUS LIDOCAINE 2% 15 ML UDC MM SCH ×3 (06:00→21:33)
[2022-12-06] MEDS: MAGIC MOUTHWASH SSW SCH ×3 (06:00→21:33)
[2022-12-06 06:57] LABS: HEMATOCRIT. 25.5 % (42.0-52.0); HEMOGLOBIN. 8.6 g/dL (14.0-18.0); MEAN CORPUSCULAR HEMOGLOBIN 31.7 pg (28.0-32.0); MEAN CORPUSCULAR VOLUME 93.7 fL (80.0-94.0); MEAN PLATELET VOLUME 7.1 fl (7.4-10.4); PLATELET 455 x1000/uL (130-400); RED BLOOD CELL COUNT 2.72 mill/uL (4.7-6.1); RED CELL DISTRIBUTION WIDTH 14.7 % (11.6-14.6)
[2022-12-06 06:58] LABS: CHLORIDE 111 mEq/L (98-107)
[2022-12-06] MEDS: ATOVAQUONE 750MG/5ML PACKET PO SCH (07:15)
[2022-12-06] MEDS: SODIUM CHLORIDE 0.9% 1,000 ML IV SCH ×2 (07:30→17:30)
[2022-12-06 08:00] VITALS: BP 136/100
[2022-12-06] MEDS: AZITHROMYCIN 600 MG TABLET PO SCH (09:00)
[2022-12-06] MEDS: ENOXAPARIN 30MG/0.3ML SYR SUBCUT SCH (11:00)
[2022-12-06 12:00] VITALS: BP 146/100
[2022-12-06] MEDS ORDERED: VANCOMYCIN 750MG PREMIX 150 ML IV NR (12:00)
[2022-12-06] MEDS ORDERED: LIDOCAINE HCL 1% 30ML VIAL (10MG/ML) ONE (12:40)
[2022-12-06 13:11] LABS: PLATELET ESTIMATE INCREASED
[2022-12-06 16:00] VITALS: BP 136/91
[2022-12-06] MEDS ORDERED: CEFTRIAXONE 2 G PREMIX 50 ML IV SCH (18:00)
[2022-12-06] MEDS ORDERED: CEFTRIAXONE 2 G in DEXTROSE 5% WATER 50 ML IV SCH (19:00)
[2022-12-06 20:00] VITALS: BP 122/98
[2022-12-06] MEDS: ACETAMINOPHEN 325MG TABLET PO PRN (21:32)
[2022-12-07] VITALS: BP 129/90
[2022-12-07] MEDS: SODIUM CHLORIDE 0.9% 1,000 ML IV SCH ×2 (03:30→12:29)
[2022-12-07 04:00] VITALS: BP 164/101
[2022-12-07] MEDS: MAGIC MOUTHWASH SSW SCH ×3 (05:57→21:40)
[2022-12-07] MEDS: VISCOUS LIDOCAINE 2% 15 ML UDC MM SCH ×3 (05:57→22:00)
[2022-12-07] MEDS: ATOVAQUONE 750MG/5ML PACKET PO SCH (06:34)
[2022-12-07] MEDS ORDERED: LIDOCAINE HCL 1% 10 MG/ML 10ML VIAL ONE (08:29)
[2022-12-07 09:00] VITALS: BP 147/91
[2022-12-07 09:10] LABS: IMMUNOGLOBULIN A 553 mg/dL (90-386); IMMUNOGLOBULIN G 2017 mg/dL (603-1613); IMMUNOGLOBULIN M 44 mg/dL (20-172)
[2022-12-07 09:31] LABS: HEMATOCRIT. 27.5 % (42.0-52.0); HEMOGLOBIN. 9.1 g/dL (14.0-18.0); MEAN CORPUSCULAR HEMOGLOBIN 31.1 pg (28.0-32.0); MEAN CORPUSCULAR VOLUME 93.8 fL (80.0-94.0); MEAN PLATELET VOLUME 7.3 fl (7.4-10.4); PLATELET 453 x1000/uL (130-400); RED BLOOD CELL COUNT 2.94 mill/uL (4.7-6.1); RED CELL DISTRIBUTION WIDTH 14.5 % (11.6-14.6)
[2022-12-07 09:52] LABS: PHOSPHORUS 2.5 mg/dL (2.5-4.9)
[2022-12-07] MEDS: ACETAMINOPHEN 325MG TABLET PO PRN (10:01)
[2022-12-07 12:00] VITALS: BP 133/93
[2022-12-07] MEDS: ENOXAPARIN 30MG/0.3ML SYR SUBCUT SCH (12:28)
[2022-12-07] MEDS: HYDROCODONE/ACETAMINOPHEN 10/325MG TABLET PO PRN (12:28)
[2022-12-07 13:11] LABS: A/G RATIO 0.4 (0.7-1.7); ALBUMIN 1.9 g/dL (2.9-4.4); ALPHA-1-GLOBULIN 0.3 g/dL (0.0-0.4); ANTI-DNA DOUBLE STRANDED QUANT 1 IU/mL (0-9); ANTI-NUCLEAR ANTIBODIES DIRECT Positive (Negative); BETA GLOBULIN 1.1 g/dL (0.7-1.3); GAMMA GLOBULINS 1.9 g/dL (0.4-1.8); GLOBULIN TOTAL 4.3 g/dL (2.2-3.9); M-SPIKE Not Observed g/dL (Not Observed); TOTAL PROTEIN SERUM 6.2 g/dL (6.0-8.5)
[2022-12-07 13:45] LABS: PLATELET ESTIMATE INCREASED
[2022-12-07 16:00] VITALS: BP 135/95
[2022-12-07] MEDS ORDERED: CEFTRIAXONE 2 G in DEXTROSE 5% WATER 50 ML IV SCH (17:00)
[2022-12-07 20:00] VITALS: BP 141/103
[2022-12-08] VITALS: BP 130/93
[2022-12-08] MEDS: SODIUM CHLORIDE 0.9% 1,000 ML IV SCH ×3 (00:21→19:30)
[2022-12-08] MEDS: ONDANSETRON HCL 4MG/2ML INJ IV PRN (00:54)
[2022-12-08 04:00] VITALS: BP 128/92
[2022-12-08] MEDS: HYDROCODONE/ACETAMINOPHEN 10/325MG TABLET PO PRN (04:33)
[2022-12-08] MEDS: MAGIC MOUTHWASH SSW SCH ×3 (06:00→21:49)
[2022-12-08] MEDS: VISCOUS LIDOCAINE 2% 15 ML UDC MM SCH ×3 (06:00→21:49)
[2022-12-08 08:00] VITALS: BP 128/88
[2022-12-08] MEDS: ENOXAPARIN 30MG/0.3ML SYR SUBCUT SCH (10:13)
[2022-12-08] MEDS: ACETAMINOPHEN 325MG TABLET PO PRN (10:13)
[2022-12-08] MEDS: ATOVAQUONE 750MG/5ML PACKET PO SCH (10:13)
[2022-12-08 12:00] VITALS: BP 132/96
[2022-12-08 16:00] VITALS: BP 129/88
[2022-12-08] MEDS ORDERED: VANCOMYCIN 750MG PREMIX 150 ML IV NR (18:00)
[2022-12-09] MEDS: HYDROCODONE/ACETAMINOPHEN 10/325MG TABLET PO PRN ×2 (01:43→17:26)
[2022-12-09] MEDS: SODIUM CHLORIDE 0.9% 1,000 ML IV SCH ×2 (05:30→15:03)
[2022-12-09] MEDS: MAGIC MOUTHWASH SSW SCH ×3 (06:00→22:00)
[2022-12-09] MEDS: VISCOUS LIDOCAINE 2% 15 ML UDC MM SCH ×3 (06:00→22:00)
[2022-12-09] MEDS: ATOVAQUONE 750 MG/5 ML UDC PO SCH (07:15)
[2022-12-09 08:00] VITALS: BP 133/91
[2022-12-09 08:07] LABS: HEMATOCRIT. 23.6 % (42.0-52.0); HEMOGLOBIN. 7.9 g/dL (14.0-18.0); MEAN CORPUSCULAR HEMOGLOBIN 31.1 pg (28.0-32.0); MEAN CORPUSCULAR VOLUME 93.3 fL (80.0-94.0); MEAN PLATELET VOLUME 7.2 fl (7.4-10.4); PLATELET 420 x1000/uL (130-400); RED BLOOD CELL COUNT 2.53 mill/uL (4.7-6.1); RED CELL DISTRIBUTION WIDTH 14.4 % (11.6-14.6)
[2022-12-09 08:39] LABS: PHOSPHORUS 3.2 mg/dL (2.5-4.9)
[2022-12-09] MEDS: ENOXAPARIN 30MG/0.3ML SYR SUBCUT SCH (11:00)
[2022-12-09] MEDS ORDERED: MAGNESIUM 2 G PREMIX 50 ML IV NR (15:00)
[2022-12-09 16:05] LABS: PLATELET ESTIMATE SLIGHTLY INCREASED
[2022-12-09] MEDS ORDERED: VANCOMYCIN 750MG PREMIX 150 ML IV NR (18:00)
[2022-12-09] MEDS ORDERED: NALOXONE HCL 0.4MG/ML VIAL IV PRN (19:00)
[2022-12-09 20:00] VITALS: BP 130/80
[2022-12-10] VITALS: BP 142/80
[2022-12-10] MEDS: SODIUM CHLORIDE 0.9% 1,000 ML IV SCH ×2 (01:30→14:02)
[2022-12-10 04:00] VITALS: BP 121/55
[2022-12-10] MEDS: VISCOUS LIDOCAINE 2% 15 ML UDC MM SCH ×3 (06:00→22:00)
[2022-12-10] MEDS: MAGIC MOUTHWASH SSW SCH ×3 (06:00→22:00)
[2022-12-10 06:45] LABS: HEMATOCRIT. 23.1 % (42.0-52.0); HEMOGLOBIN. 7.8 g/dL (14.0-18.0); MEAN CORPUSCULAR HEMOGLOBIN 31.3 pg (28.0-32.0); MEAN CORPUSCULAR VOLUME 92.9 fL (80.0-94.0); PLATELET 350 x1000/uL (130-400); RED BLOOD CELL COUNT 2.49 mill/uL (4.7-6.1); RED CELL DISTRIBUTION WIDTH 14.8 % (11.6-14.6)
[2022-12-10] MEDS: HYDROCODONE/ACETAMINOPHEN 10/325MG TABLET PO PRN ×3 (06:45→23:46)
[2022-12-10 06:46] LABS: PHOSPHORUS 2.8 mg/dL (2.5-4.9)
[2022-12-10] MEDS: ATOVAQUONE 750 MG/5 ML UDC PO SCH (07:15)
[2022-12-10 08:00] VITALS: BP 137/90
[2022-12-10] MEDS ORDERED: MAGNESIUM 2 G PREMIX 50 ML IV SCH ×2 (09:00→13:00)
[2022-12-10] MEDS: ENOXAPARIN 30MG/0.3ML SYR SUBCUT SCH (11:00)
[2022-12-10 12:00] VITALS: BP 126/93
[2022-12-10] MEDS ORDERED: VANCOMYCIN 500MG PREMIX 100 ML IV SCH (13:00)
[2022-12-10 16:00] VITALS: BP 145/93
[2022-12-10] MEDS: ACETAMINOPHEN 325MG TABLET PO PRN (16:55)
[2022-12-10 20:00] VITALS: BP 136/86
[2022-12-11] VITALS: BP 128/66
[2022-12-11 04:00] VITALS: BP 137/89
[2022-12-11] MEDS: MAGIC MOUTHWASH SSW SCH ×3 (06:00→22:00)
[2022-12-11] MEDS: VISCOUS LIDOCAINE 2% 15 ML UDC MM SCH ×3 (06:00→22:00)
[2022-12-11] MEDS: ATOVAQUONE 750 MG/5 ML UDC PO SCH (06:37)
[2022-12-11] MEDS: HYDROCODONE/ACETAMINOPHEN 10/325MG TABLET PO PRN (06:37)
[2022-12-11 06:53] LABS: HEMATOCRIT. 26.2 % (42.0-52.0); HEMOGLOBIN. 8.7 g/dL (14.0-18.0); MEAN CORPUSCULAR HEMOGLOBIN 30.8 pg (28.0-32.0); MEAN CORPUSCULAR VOLUME 92.2 fL (80.0-94.0); PLATELET 356 x1000/uL (130-400); RED BLOOD CELL COUNT 2.84 mill/uL (4.7-6.1); RED CELL DISTRIBUTION WIDTH 14.8 % (11.6-14.6)
[2022-12-11 07:28] LABS: PHOSPHORUS 3.7 mg/dL (2.5-4.9)
[2022-12-11] MEDS: SODIUM CHLORIDE 0.9% 1,000 ML IV SCH ×2 (10:02→19:36)
[2022-12-11 10:22] LABS: PLATELET ESTIMATE NORMAL
[2022-12-11] MEDS: ENOXAPARIN 30MG/0.3ML SYR SUBCUT SCH (11:53)
[2022-12-11 12:00] VITALS: BP 125/87
[2022-12-11 14:41] LABS: PLATELET ESTIMATE NORMAL
[2022-12-11] MEDS ORDERED: VANCOMYCIN 1G PREMIX 200 ML IV NR (15:00)
[2022-12-11 16:00] VITALS: BP 131/92
[2022-12-11 20:00] VITALS: BP 132/90
[2022-12-12] VITALS: BP 146/87
[2022-12-12 04:00] VITALS: BP 146/90
[2022-12-12] MEDS: MAGIC MOUTHWASH SSW SCH ×2 (06:00→14:00)
[2022-12-12] MEDS: VISCOUS LIDOCAINE 2% 15 ML UDC MM SCH ×2 (06:00→14:00)
[2022-12-12] MEDS: ATOVAQUONE 750 MG/5 ML UDC PO SCH (06:49)
[2022-12-12 08:00] VITALS: BP 134/96
[2022-12-12] MEDS: ENOXAPARIN 40MG/0.4ML SYR SUBCUT SCH (09:00)
[2022-12-12] MEDS: HYDROCODONE/ACETAMINOPHEN 10/325MG TABLET PO PRN (10:54)
[2022-12-12 12:00] VITALS: BP 115/88
[2022-12-12 16:00] VITALS: BP 121/74
[2022-12-13] MEDS: VANCOMYCIN 750MG PREMIX 150 ML IV SCH ×2 (00:06→19:59)
[2022-12-13] MEDS: SODIUM CHLORIDE 0.9% 1,000 ML IV SCH ×2 (02:02→22:02)
[2022-12-13 04:58] LABS: BASOPHILS % 0.6 % (0.0-2.0); EOSINOPHILS % 18.6 % (0.0-5.0); HEMATOCRIT. 25.2 % (42.0-52.0); HEMOGLOBIN. 8.3 g/dL (14.0-18.0); LYMPHOCYTES % 10.5 % (20.0-50.0); MEAN CORPUSCULAR HEMOGLOBIN 30.4 pg (28.0-32.0); MEAN PLATELET VOLUME 7.1 fl (7.4-10.4); MONOCYTES % 10.4 % (2.0-8.0); NEUTROPHILS % 59.9 % (40.0-76.0); PLATELET 317 x1000/uL (130-400); RED BLOOD CELL COUNT 2.74 mill/uL (4.7-6.1); RED CELL DISTRIBUTION WIDTH 15.2 % (11.6-14.6)
[2022-12-13] MEDS: HYDROCODONE/ACETAMINOPHEN 10/325MG TABLET PO PRN ×2 (05:10→19:52)
[2022-12-13 05:44] LABS: PHOSPHORUS 3.5 mg/dL (2.5-4.9)
[2022-12-13] MEDS: ATOVAQUONE 750 MG/5 ML UDC PO SCH (06:47)
[2022-12-13 08:00] VITALS: BP 134/94
[2022-12-13] MEDS: AZITHROMYCIN 600 MG TABLET PO SCH (08:59)
[2022-12-13] MEDS: ENOXAPARIN 40MG/0.4ML SYR SUBCUT SCH (08:59)
[2022-12-13] MEDS ORDERED: MAGNESIUM 2 G PREMIX 50 ML IV NR (11:00)
[2022-12-13 12:00] VITALS: BP 130/93
[2022-12-13 16:00] VITALS: BP 125/92
[2022-12-13] MEDS: ONDANSETRON HCL 4MG/2ML INJ IV PRN (19:58)
[2022-12-13 20:00] VITALS: BP 132/82
[2022-12-13] MEDS: MAGIC MOUTHWASH SSW SCH (22:00)
[2022-12-13] MEDS: VISCOUS LIDOCAINE 2% 15 ML UDC MM SCH (22:00)
[2022-12-14] VITALS: BP 119/86
[2022-12-14 04:00] VITALS: BP 133/78
[2022-12-14] MEDS: MAGIC MOUTHWASH SSW SCH (06:00)
[2022-12-14] MEDS: VISCOUS LIDOCAINE 2% 15 ML UDC MM SCH (06:00)
[2022-12-14] MEDS: ATOVAQUONE 750 MG/5 ML UDC PO SCH (06:44)
[2022-12-14 08:00] VITALS: BP 121/85
[2022-12-14] MEDS: ENOXAPARIN 40MG/0.4ML SYR SUBCUT SCH (09:00)
[2022-12-14] MEDS ORDERED: ZITH6 PO ×3 (11:01→12:31)
[2022-12-14] MEDS ORDERED: ATOV750O PO ×3 (11:01→12:31)
[2022-12-14 12:00] VITALS: BP 147/71
== END 2022-12-14 13:00 | disposition home or self-care (01) | DRG 890 ==
LOC: ER 21:44 → MICUSO 21:45 → 7WST 10-31 02:00 → 5WST 11-08 20:52
PROVIDERS: ADMIT Family Medicine Adult Medicine; ATTEND Family Medicine Adult Medicine
PROC: 02HV33Z Insertion of Infusion Device into Superior Vena Cava, Percutaneous Approach (ICD-10-PCS; principal; 2022-12-07)
PROC: B548ZZA Ultrasonography of Superior Vena Cava, Guidance (ICD-10-PCS; 2022-12-07)
DX: A41.01 Sepsis due to Methicillin susceptible Staphylococcus aureus (principal); B20 Human immunodeficiency virus [HIV] disease; J96.00 Acute respiratory failure, unspecified whether with hypoxia or hypercapnia; J15.211 Pneumonia due to Methicillin susceptible Staphylococcus aureus; N17.9 Acute kidney failure, unspecified; E78.5 Hyperlipidemia, unspecified; B37.9 Candidiasis, unspecified; D64.9 Anemia, unspecified; J45.909 Unspecified asthma, uncomplicated; R59.1 Generalized enlarged lymph nodes; R91.1 Solitary pulmonary nodule; I12.9 Hypertensive chronic kidney disease with stage 1 through stage 4 chronic kidney disease, or unspecified chronic kidney disease; N18.2 Chronic kidney disease, stage 2 (mild); Z20.822 Contact with and (suspected) exposure to COVID-19; G43.909 Migraine, unspecified, not intractable, without status migrainosus; R74.01 Elevation of levels of liver transaminase levels; F14.10 Cocaine abuse, uncomplicated; F14.129 Cocaine abuse with intoxication, unspecified; N39.0 Urinary tract infection, site not specified; Z59.00 Homelessness unspecified; Z88.8 Allergy status to other drugs, medicaments and biological substances; Z86.73 Personal history of transient ischemic attack (TIA), and cerebral infarction without residual deficits; Z88.6 Allergy status to analgesic agent; Z82.49 Family history of ischemic heart disease and other diseases of the circulatory system
CPT/HCPCS: 36415; 36573; 36600; 71045; 71250; 74176; 76770; 80048; 80053; 80202; 80305; 81003; 82043; 82375; 82550; 82570; 82784; 82805; 83605; 83735; 84100; 84134; 84145; 84155; 84156; 84165; 84484; 85025; 86038; 86160; 86225; 86334; 86359; 86360; 86480; 86635; 86705; 86709; 86803; 87070; 87077; 87116; 87186; 87340; 87426; 87536; 87804; 92610; 93005; 93306; 94640; 97116; 97162; 97166; 97530; 97535; 99285; C1725; C1893; J0690; J0696; J1170; J1650; J2270; J2405; J2543; J2930; J3370; J3475; J3490; J7030; J7060; J7131

== ENCOUNTER 2023-07-10 16:27 | Emergency (ER) | payer MEDICAID ==
[~2023-07-10] VITALS: Ht 180.3 cm; Wt 68.0 kg
[~2023-07-10 16:27] MED LIST changes: -ASPI-1160 PO; +ATOV750O PO; +BICT1TAB PO; +ZITH6 PO
[2023-07-10 16:36] VITALS: O2SAT 100
[2023-07-10] MEDS ORDERED: PIPERACILLIN/TAZ 3.375G PREMIX 50 ML IV ONE (17:45)
[2023-07-10] MEDS ORDERED: MORPHINE SULFATE 2 MG/ML CPJ (NOT FOR IM USE) IV ONE (17:45)
[2023-07-10] MEDS ORDERED: VANCOMYCIN 1G PREMIX 200 ML IV ONE (17:45)
[2023-07-10] MEDS ORDERED: MORPHINE SULFATE 2 MG/ML CPJ (NOT FOR IM USE) IV NR (19:30)
[2023-07-10] MEDS ORDERED: DIPHENHYDRAMINE 50MG CAPSULE PO ONE (19:45)
[2023-07-10] MEDS ORDERED: DIPHENHYDRAMINE 25MG CAPSULE PO NR (19:45)
[2023-07-10 19:46] LABS: CHLORIDE 114 mEq/L (98-107); INDEX HEMOLYSI 4 (1-3); INDEX ICTERIC 1 (1-4); INDEX LIPEMIC 1 (1-3); SODIUM 138 mEq/L (136-145)
[2023-07-10 19:51] LABS: INR 0.9; PROTHROMBIN TIME 10.2 sec (9.6-11.0)
[2023-07-10 19:54] LABS: ALANINE AMINOTRANSFERASE 18 IU/L (13-61); ALBUMIN 3.3 g/dL (3.4-5.0); ASPARTATE AMINOTRANSFERASE 25 IU/L (15-37); BILIRUBIN TOTAL 0.4 mg/dL (0.1-1.0); CALCIUM 7.9 mg/dL (8.5-10.1); CARBON DIOXIDE 19 mEq/L (21-32); CREATININE 1.9 mg/dL (0.6-1.3); GLUCOSE 61 mg/dL (70-105); PROTEIN TOTAL 8.8 g/dL (6.0-8.3); UREA NITROGEN BLOOD 28 mg/dL (7-21)
[2023-07-10 19:57] LABS: BASOPHILS % 0.7 % (0.0-2.0); DIFFERENTIAL COMMENT 0; EOSINOPHILS % 9.1 % (0.0-5.0); HEMATOCRIT. 40.2 % (42.0-52.0); HEMOGLOBIN. 12.4 g/dL (14.0-18.0); LYMPHOCYTES % 12.4 % (20.0-50.0); MEAN CORPUSCULAR HEMOGLOBIN 32.3 pg (28.0-32.0); MEAN CORPUSCULAR HGB CONC 30.7 g/dL (31.0-37.0); MEAN CORPUSCULAR VOLUME 105.3 fL (80.0-94.0); MEAN PLATELET VOLUME 7.8 fl (7.4-10.4); NEUTROPHILS % 68.8 % (40.0-76.0); PLATELET 252 x1000/uL (130-400); RED BLOOD CELL COUNT 3.82 mill/uL (4.7-6.1); RED CELL DISTRIBUTION WIDTH 14.9 % (11.6-14.6); WHITE BLOOD COUNT 6.1 x1000/uL (4.5-11.0)
[2023-07-10] MEDS ORDERED: VANCOMYCIN 1G PREMIX 200 ML IV NR (20:45)
[2023-07-10] MEDS ORDERED: SODIUM CHLORIDE 0.9% 1,000 ML IV ONE (21:00)
[2023-07-11 01:05] LABS: CLARITY URINE CLEAR (CLEAR); COLOR URINE YELLOW (YELLOW); GLUCOSE URINE NEGATIVE (NEGATIVE); KETONES URINE NEGATIVE (NEGATIVE); LEUKOCYTE ESTERASE URINE NEGATIVE (NEGATIVE); NITRITE URINE NEGATIVE (NEGATIVE); OCCULT BLOOD URINE NEGATIVE (NEGATIVE); PH URINE 5.5 (4.5-8.0); PROTEIN URINE 2+ (NEGATIVE); SPECIFIC GRAVITY URINE 1.013 (1.005-1.030); UROBILINOGEN URINE 0.2 E.U./dL (0.2-1.0)
[2023-07-11 01:09] LABS: BACTERIA URINE NONE SEEN; RBC URINE NONE SEEN /hpf (0-2); SQUAMOUS EPITHELIAL CELL URINE NONE SEEN /lpf (RARE/1+); YEAST URINE NONE SEEN
[2023-07-11] MEDS ORDERED: HYDROCODONE/ACETAMINOPHEN 10/325MG TABLET PO ONE (03:00)
[2023-07-11] MEDS ORDERED: HYDROCODONE/ACETAMINOPHEN 10/325MG TABLET PO NR (03:30)
[2023-07-11] MEDS ORDERED: IOHEXOL-300 100 ML BOTTLE ONE (06:43)
[2023-07-11] MEDS ORDERED: OXYCODONE HCL/ACETAMINOPHEN 5/325MG TABLET PO ONE (13:30)
[2023-07-11] MEDS: CEFAZOLIN 1000MG PREMIX 50 ML IV SCH ×2 (14:25→23:20)
[2023-07-12] MEDS ORDERED: OXYCODONE HCL 5MG TABLET PO ONE (04:15)
[2023-07-12] MEDS ORDERED: LIDOCAINE HCL/PF 1% 10 MG/ML 5ML VIAL INFIL ONE (09:15)
[2023-07-12] MEDS ORDERED: BACITRACIN ZINC OINT UDPKT TOP ONE (09:15)
[2023-07-12] MEDS: CEFAZOLIN 1000MG PREMIX 50 ML IV SCH (09:40)
[2023-07-12] MEDS ORDERED: AMOX1TAB16 MT (10:53)
[2023-07-12 11:35] VITALS: BP 117/72; PULSE 69; RESP 16; TEMP 98.4
== END 2023-07-12 11:58 | disposition home or self-care (01) ==
LOC: ER 16:27
DX: L03.114 Cellulitis of left upper limb (principal); I10 Essential (primary) hypertension; Z88.6 Allergy status to analgesic agent
CPT/HCPCS: 80053; 81003; 83605; 85025; 85610; 87040; 36415; 84145; 96365; 96375; 99285; 96367; 82962; Q0163; J2543; J3370; J2270; Z7610; Q9967; J0690; J3490

== ENCOUNTER 2023-10-24 15:40 | Emergency (ER) | payer MEDICAID ==
[~2023-10-24] VITALS: Ht 172.7 cm; Wt 70.0 kg
[~2023-10-24 15:40] MED LIST changes: +AMOX1TAB16 MT
[2023-10-24 16:03] VITALS: TEMP 97.8; O2SAT 97
[2023-10-24] MEDS ORDERED: SULF1TAB48 MT (17:42)
[2023-10-24] MEDS ORDERED: KETOROLAC 60MG/2ML VIAL IM ONE (17:45)
[2023-10-24] MEDS ORDERED: SULFAMETHOXAZOLE/TRIMETHOPRIM 800/160MG TABLET PO ONE (17:45)
[2023-10-24 18:34] VITALS: BP 123/91; PULSE 84; RESP 16
== END 2023-10-24 18:40 | disposition home or self-care (01) ==
LOC: ER 15:40
DX: L03.113 Cellulitis of right upper limb (principal); I10 Essential (primary) hypertension; F14.10 Cocaine abuse, uncomplicated; F12.10 Cannabis abuse, uncomplicated; Z79.899 Other long term (current) drug therapy
CPT/HCPCS: 96372; 99283; J1885; Z7610

== ENCOUNTER 2024-02-19 15:04 | Inpatient (IN) | payer MEDICAID ==
[~2024-02-19] VITALS: Ht 177.8 cm; Wt 73.0 kg
[~2024-02-19 15:04] MED LIST changes: +SULF1TAB48 MT
[2024-02-19 16:06] LABS: BASOPHILS % 0.8 % (0.0-2.0); EOSINOPHILS % 13.9 % (0.0-5.0); HEMATOCRIT. 35.1 % (42.0-52.0); HEMOGLOBIN. 11.6 g/dL (14.0-18.0); LYMPHOCYTES % 13.2 % (20.0-50.0); MEAN CORPUSCULAR HEMOGLOBIN 32.2 pg (28.0-32.0); MEAN CORPUSCULAR VOLUME 97.3 fL (80.0-94.0); MEAN PLATELET VOLUME 7.7 fl (7.4-10.4); MONOCYTES % 11.7 % (2.0-8.0); NEUTROPHILS % 60.4 % (40.0-76.0); PLATELET 310 x1000/uL (130-400); RED BLOOD CELL COUNT 3.61 mill/uL (4.7-6.1); RED CELL DISTRIBUTION WIDTH 13.5 % (11.6-14.6); WHITE BLOOD COUNT 3.1 x1000/uL (4.5-11.0)
[2024-02-19 16:08] LABS: POTASSIUM 5.5 mEq/L (3.5-5.1)
[2024-02-19 16:10] LABS: CALCIUM 8.9 mg/dL (8.7-10.4)
[2024-02-19 16:14] LABS: CREATININE 2.7 mg/dL (0.6-1.3)
[2024-02-19 16:52] LABS: CLARITY URINE CLEAR (CLEAR); COLOR URINE YELLOW (YELLOW); GLUCOSE URINE NEGATIVE (NEGATIVE); KETONES URINE NEGATIVE (NEGATIVE); LEUKOCYTE ESTERASE URINE TRACE (NEGATIVE); NITRITE URINE NEGATIVE (NEGATIVE); OCCULT BLOOD URINE TRACE (NEGATIVE); PH URINE 5.5 (4.5-8.0); PROTEIN URINE 2+ (NEGATIVE); SPECIFIC GRAVITY URINE 1.014 (1.005-1.030); UROBILINOGEN URINE 0.2 E.U./dL (0.2-1.0)
[2024-02-19 17:05] LABS: BACTERIA URINE NONE SEEN; SQUAMOUS EPITHELIAL CELL URINE 1+ /lpf (RARE/1+); WBC URINE 0-2 /hpf (0-2)
[2024-02-19] MEDS: TRAMADOL 50MG TABLET PO ONE (18:35)
[2024-02-19] MEDS ORDERED: OXYCODONE HCL/ACETAMINOPHEN 5/325MG TABLET PO ONE (19:45)
[2024-02-19] MEDS: CLONIDINE 0.1MG TABLET PO ONE (20:08)
[2024-02-19] MEDS: HYDROCODONE/ACETAMINOPHEN 10/325MG TABLET PO ONE (20:08)
[2024-02-20] MEDS ORDERED: CLONIDINE 0.1MG TABLET PO PRN (09:30)
[2024-02-20] MEDS ORDERED: ONDANSETRON HCL 4MG/2ML INJ IV PRN (09:30)
[2024-02-20] MEDS ORDERED: DIPHENHYDRAMINE 50MG/ML VIAL IV PRN (09:30)
[2024-02-20] MEDS ORDERED: IPRATROPIUM/ALBUTEROL 0.5-3(2.5)MG/3ML NEB HHN PRN (09:30)
[2024-02-20 11:00] VITALS: BP 139/88; PULSE 80; RESP 19; TEMP 98.5
[2024-02-20 12:00] VITALS: BP 140/93; PULSE 83; RESP 20; TEMP 97.5
[2024-02-20] MEDS: SODIUM POLYSTYRENE SULFONATE 15 G/60 ML BOT PO NR ×2 (13:45→20:45)
[2024-02-20 16:00] VITALS: BP 138/90; PULSE 77; RESP 19; TEMP 97.1
[2024-02-20] MEDS: ACETAMINOPHEN 325MG TABLET PO PRN (17:41)
[2024-02-20 20:00] VITALS: BP 155/121; PULSE 86; RESP 20; TEMP 97.7
[2024-02-20] MEDS: FLUCONAZOLE 100MG TABLET PO SCH (23:51)
[2024-02-20] MEDS: SODIUM CHLORIDE 0.9% 1,000 ML IV SCH (23:53)
[2024-02-21] VITALS: BP 143/105; PULSE 92; RESP 19; TEMP 97.8
[2024-02-21 04:00] VITALS: BP 143/94; PULSE 80; RESP 20; TEMP 98
[2024-02-21 05:06] LABS: CHLORIDE 111 mEq/L (98-107); SODIUM 140 mEq/L (136-145)
[2024-02-21 05:07] LABS: CALCIUM 8.8 mg/dL (8.7-10.4); CARBON DIOXIDE 19 mEq/L (21-32)
[2024-02-21 05:08] LABS: BASOPHILS % 0.7 % (0.0-2.0); EOSINOPHILS % 14.5 % (0.0-5.0); HEMATOCRIT. 35.8 % (42.0-52.0); HEMOGLOBIN. 12.2 g/dL (14.0-18.0); LYMPHOCYTES % 11.8 % (20.0-50.0); MEAN CORPUSCULAR HEMOGLOBIN 32.4 pg (28.0-32.0); MEAN CORPUSCULAR VOLUME 95.5 fL (80.0-94.0); MEAN PLATELET VOLUME 7.5 fl (7.4-10.4); MONOCYTES % 7.9 % (2.0-8.0); NEUTROPHILS % 65.1 % (40.0-76.0); PLATELET 333 x1000/uL (130-400); RED BLOOD CELL COUNT 3.75 mill/uL (4.7-6.1); RED CELL DISTRIBUTION WIDTH 13.2 % (11.6-14.6); WHITE BLOOD COUNT 3.6 x1000/uL (4.5-11.0)
[2024-02-21 05:12] LABS: CREATININE 2.4 mg/dL (0.6-1.3); GLUCOSE 87 mg/dL (70-105); UREA NITROGEN BLOOD 42 mg/dL (9-23)
[2024-02-21 05:14] LABS: ALANINE AMINOTRANSFERASE 13 IU/L (10-49); ALBUMIN 3.8 g/dL (3.2-4.8); ASPARTATE AMINOTRANSFERASE 18 IU/L (<34); CREATINE KINASE 125 IU/L (46-171); PHOSPHORUS 4.3 mg/dL (2.5-4.9)
[2024-02-21 05:15] LABS: BILIRUBIN TOTAL 0.2 mg/dL (0.1-1.0); PROTEIN TOTAL 7.7 g/dL (6.0-8.3)
[2024-02-21 05:30] LABS: BILIRUBIN DIRECT < 0.1 mg/dL (<=3.0)
[2024-02-21] MEDS: VORICONAZOLE 50MG TABLET PO SCH (07:35)
[2024-02-21 08:05] VITALS: BP 130/81; PULSE 80; RESP 18; TEMP 98.9
[2024-02-21] MEDS ORDERED: VORICONAZOLE 50MG TABLET PO SCH (09:00)
[2024-02-21] MEDS: ATOVAQUONE 750 MG/5 ML UDC PO SCH (09:26)
[2024-02-21] MEDS: AZITHROMYCIN 600 MG TABLET PO SCH (09:26)
[2024-02-21 12:06] VITALS: BP 125/79; PULSE 74; RESP 20; TEMP 98.9
[2024-02-21 16:15] VITALS: BP 130/77; PULSE 87; RESP 20; TEMP 98.3
[2024-02-21 20:43] VITALS: BP 137/86; PULSE 68; RESP 20; TEMP 97.8
[2024-02-22] VITALS: BP 136/94; PULSE 89; RESP 16; TEMP 99.5
[2024-02-22 04:00] VITALS: BP 137/93; PULSE 85; RESP 16; TEMP 97.4
[2024-02-22 06:54] LABS: BASOPHILS % 0.3 % (0.0-2.0); EOSINOPHILS % 10.4 % (0.0-5.0); HEMATOCRIT. 32.9 % (42.0-52.0); HEMOGLOBIN. 11.1 g/dL (14.0-18.0); LYMPHOCYTES % 9.1 % (20.0-50.0); MEAN CORPUSCULAR HEMOGLOBIN 32.1 pg (28.0-32.0); MEAN CORPUSCULAR HGB CONC 33.6 g/dL (31.0-37.0); MEAN CORPUSCULAR VOLUME 95.6 fL (80.0-94.0); MEAN PLATELET VOLUME 7.4 fl (7.4-10.4); MONOCYTES % 6.6 % (2.0-8.0); NEUTROPHILS % 73.6 % (40.0-76.0); PLATELET 286 x1000/uL (130-400); RED BLOOD CELL COUNT 3.44 mill/uL (4.7-6.1); WHITE BLOOD COUNT 3.7 x1000/uL (4.5-11.0)
[2024-02-22 07:15] LABS: CARBON DIOXIDE 17 mEq/L (21-32); CHLORIDE 114 mEq/L (98-107); POTASSIUM 5.1 mEq/L (3.5-5.1); SODIUM 140 mEq/L (136-145)
[2024-02-22 07:17] LABS: CALCIUM 8.3 mg/dL (8.7-10.4)
[2024-02-22 07:20] LABS: CREATININE 2.4 mg/dL (0.6-1.3)
[2024-02-22 07:21] LABS: GLUCOSE 79 mg/dL (70-105); UREA NITROGEN BLOOD 39 mg/dL (9-23)
[2024-02-22 07:23] LABS: PHOSPHORUS 4.4 mg/dL (2.5-4.9)
[2024-02-22 08:00] VITALS: BP 139/92; PULSE 85; RESP 20; TEMP 98.2
[2024-02-22] MEDS: VORICONAZOLE 50MG TABLET PO SCH (08:23)
[2024-02-22 12:00] VITALS: BP 133/89; PULSE 87; RESP 20; TEMP 97.5
[2024-02-22] MEDS: SODIUM BICARBONATE 650 MG TABLET PO SCH (12:54)
[2024-02-22 13:07] LABS: % CD 3 POS. LYMPHOCYTES 67.5 % (57.5-86.2); % CD 4 POS. LYMPHOCYTES 5.1 % (30.8-58.5); ABSOLUTE CD 3 270 /uL (622-2402); ABSOLUTE CD 4 HELPER 20 /uL (359-1519); ABSOLUTE CD 8 SUPPRESSOR 236 /uL (109-897); ABSOLUTE EOSINOPHILS 0.5 x10E3/uL (0.0-0.4); ABSOLUTE LYMPHOCYTES 0.4 x10E3/uL (0.7-3.1); ABSOLUTE MONOCYTES 0.2 x10E3/uL (0.1-0.9); ABSOLUTE NEUTROPHILS 2.3 x10E3/uL (1.4-7.0); BASOPHILS 0 % (Not Estab.); CD4/CD8 RATIO 0.09 (0.92-3.72); EOSINOPHILS 14 % (Not Estab.); HEMATOCRIT 36.2 % (37.5-51.0); HEMOGLOBIN 11.9 g/dL (13.0-17.7); IMMATURE GRANULOCYTES 1 % (Not Estab.); LYMPHOCYTES 13 % (Not Estab.); MEAN CORPUSCULAR HEMOGLOBIN 31.4 pg (26.6-33.0); MEAN CORPUSCULAR HGB CONC. 32.9 g/dL (31.5-35.7); MEAN CORPUSCULAR VOLUME 96 fL (79-97); MONOCYTES 6 % (Not Estab.); NEUTROPHILS 66 % (Not Estab.); PLATELETS 329 x10E3/uL (150-450); RBC 3.79 x10E6/uL (4.14-5.80); RED CELL DISTRIBUTION WIDTH 12.7 % (11.6-15.4); WBC 3.5 x10E3/uL (3.4-10.8)
[2024-02-22 16:00] VITALS: BP 130/84; PULSE 84; RESP 20; TEMP 97.4
[2024-02-22 20:38] VITALS: BP 126/80; PULSE 99; RESP 16; TEMP 97.2
[2024-02-23 04:00] VITALS: BP 127/83; PULSE 97; RESP 20; TEMP 98.7
[2024-02-23 07:05] LABS: CHLORIDE 111 mEq/L (98-107); POTASSIUM 4.8 mEq/L (3.5-5.1); SODIUM 135 mEq/L (136-145)
[2024-02-23 07:06] LABS: CARBON DIOXIDE 17 mEq/L (21-32)
[2024-02-23 07:11] LABS: CREATININE 2.7 mg/dL (0.6-1.3); GLUCOSE 90 mg/dL (70-105); UREA NITROGEN BLOOD 36 mg/dL (9-23)
[2024-02-23 07:13] LABS: PHOSPHORUS 3.1 mg/dL (2.5-4.9)
[2024-02-23 07:29] LABS: HEMATOCRIT. 34.4 % (42.0-52.0); HEMOGLOBIN. 11.6 g/dL (14.0-18.0); MEAN CORPUSCULAR HEMOGLOBIN 32.1 pg (28.0-32.0); MEAN CORPUSCULAR HGB CONC 33.7 g/dL (31.0-37.0); MEAN CORPUSCULAR VOLUME 95.4 fL (80.0-94.0); MEAN PLATELET VOLUME 7.8 fl (7.4-10.4); PLATELET 281 x1000/uL (130-400); RED BLOOD CELL COUNT 3.61 mill/uL (4.7-6.1); RED CELL DISTRIBUTION WIDTH 13.3 % (11.6-14.6); WHITE BLOOD COUNT 5.8 x1000/uL (4.5-11.0)
[2024-02-23 08:00] VITALS: BP 113/78; PULSE 103; RESP 18; TEMP 97.8
[2024-02-23 08:29] LABS: DIFFERENTIAL COMMENT 1
[2024-02-23 12:00] VITALS: BP 118/79; PULSE 100; RESP 18; TEMP 97.2
[2024-02-23 12:25] LABS: PLATELET ESTIMATE NORMAL
[2024-02-23 16:00] VITALS: BP 111/75; PULSE 95; RESP 18; TEMP 98
[2024-02-23 20:00] VITALS: BP 138/88; PULSE 112; RESP 18; TEMP 102
[2024-02-24] VITALS: BP 108/73; PULSE 92; RESP 20; TEMP 97.9
[2024-02-24 04:00] VITALS: BP 106/74; PULSE 96; RESP 19; TEMP 97.7
[2024-02-24 08:23] VITALS: BP 110/75; PULSE 91; RESP 20; TEMP 98.7
[2024-02-24 08:23] LABS: BASOPHILS % 0.4 % (0.0-2.0); EOSINOPHILS % 5.8 % (0.0-5.0); LYMPHOCYTES % 7.3 % (20.0-50.0); MEAN CORPUSCULAR HGB CONC 33.3 g/dL (31.0-37.0); MEAN CORPUSCULAR VOLUME 95.8 fL (80.0-94.0); MEAN PLATELET VOLUME 8.2 fl (7.4-10.4); MONOCYTES % 8.6 % (2.0-8.0); NEUTROPHILS % 77.9 % (40.0-76.0); PLATELET 294 x1000/uL (130-400); RED BLOOD CELL COUNT 3.76 mill/uL (4.7-6.1); RED CELL DISTRIBUTION WIDTH 13.2 % (11.6-14.6); WHITE BLOOD COUNT 6.3 x1000/uL (4.5-11.0)
[2024-02-24 08:40] LABS: CALCIUM 9.3 mg/dL (8.7-10.4); CARBON DIOXIDE 18 mEq/L (21-32); CHLORIDE 109 mEq/L (98-107); POTASSIUM 5.1 mEq/L (3.5-5.1); SODIUM 136 mEq/L (136-145)
[2024-02-24 08:45] LABS: CREATININE 3.4 mg/dL (0.6-1.3); GLUCOSE 97 mg/dL (70-105)
[2024-02-24 08:46] LABS: UREA NITROGEN BLOOD 44 mg/dL (9-23)
[2024-02-24 08:48] LABS: PHOSPHORUS 4.3 mg/dL (2.5-4.9)
[2024-02-24] MEDS ORDERED: MICO14CR6 TOP (12:08)
[2024-02-24 12:13] VITALS: BP 110/73; PULSE 88; RESP 18; TEMP 98
[2024-02-24 15:54] VITALS: BP 135/81; PULSE 86; RESP 18; TEMP 98.4
[2024-02-24 20:00] VITALS: BP 137/94; PULSE 99; RESP 19; TEMP 99.5
[2024-02-24] MEDS: MICONAZOLE NITRATE 2% OINT 71GM TOP SCH (21:00)
[2024-02-24] MEDS ORDERED: IVERMECTIN 3 MG TABLET PO NR (23:45)
[2024-02-25] VITALS: BP 132/88; PULSE 96; RESP 20; TEMP 98.9
[2024-02-25 04:00] VITALS: BP 136/77; PULSE 98; RESP 20; TEMP 98.7
[2024-02-25 07:57] LABS: BASOPHILS % 0.4 % (0.0-2.0); HEMATOCRIT. 41.2 % (42.0-52.0); HEMOGLOBIN. 13.6 g/dL (14.0-18.0); LYMPHOCYTES % 8.2 % (20.0-50.0); MEAN CORPUSCULAR HEMOGLOBIN 31.8 pg (28.0-32.0); MEAN CORPUSCULAR HGB CONC 32.9 g/dL (31.0-37.0); MEAN CORPUSCULAR VOLUME 96.6 fL (80.0-94.0); MEAN PLATELET VOLUME 8.2 fl (7.4-10.4); NEUTROPHILS % 77.4 % (40.0-76.0); PLATELET 325 x1000/uL (130-400); RED BLOOD CELL COUNT 4.26 mill/uL (4.7-6.1); RED CELL DISTRIBUTION WIDTH 13.3 % (11.6-14.6)
[2024-02-25 07:59] LABS: CALCIUM 9.8 mg/dL (8.7-10.4); CARBON DIOXIDE 18 mEq/L (21-32); CHLORIDE 105 mEq/L (98-107); POTASSIUM 5.1 mEq/L (3.5-5.1); SODIUM 135 mEq/L (136-145)
[2024-02-25 08:05] LABS: GLUCOSE 98 mg/dL (70-105); UREA NITROGEN BLOOD 46 mg/dL (9-23)
[2024-02-25 08:07] LABS: PHOSPHORUS 5.2 mg/dL (2.5-4.9)
[2024-02-25 08:08] VITALS: BP 115/92; PULSE 89; RESP 18; TEMP 98.4
[2024-02-25] MEDS ORDERED: NALOXONE HCL 0.4MG/ML VIAL IV PRN (09:30)
[2024-02-25] MEDS: HYDROCODONE/ACETAMINOPHEN 5/325MG TABLET PO PRN (11:05)
[2024-02-25 16:12] VITALS: BP 137/88; PULSE 81; RESP 19; TEMP 98
[2024-02-25 20:00] VITALS: BP 101/79; PULSE 98; RESP 19; TEMP 97.7
[2024-02-26] VITALS: BP 141/107; PULSE 107; RESP 21; TEMP 98.5
[2024-02-26 04:00] VITALS: BP 122/84; PULSE 106; RESP 20; TEMP 98.2
[2024-02-26 07:36] LABS: CARBON DIOXIDE 14 mEq/L (21-32); CHLORIDE 104 mEq/L (98-107); POTASSIUM 5.3 mEq/L (3.5-5.1); SODIUM 132 mEq/L (136-145)
[2024-02-26 07:37] LABS: CALCIUM 9.7 mg/dL (8.7-10.4)
[2024-02-26 07:41] LABS: CREATININE 4.2 mg/dL (0.6-1.3)
[2024-02-26 07:42] LABS: GLUCOSE 107 mg/dL (70-105); UREA NITROGEN BLOOD 36 mg/dL (9-23)
[2024-02-26 07:44] LABS: PHOSPHORUS 3.8 mg/dL (2.5-4.9)
[2024-02-26 07:58] LABS: BASOPHILS % 0.5 % (0.0-2.0); DIFFERENTIAL COMMENT 0; EOSINOPHILS % 2.7 % (0.0-5.0); HEMATOCRIT. 41.4 % (42.0-52.0); HEMOGLOBIN. 13.1 g/dL (14.0-18.0); LYMPHOCYTES % 7.5 % (20.0-50.0); MEAN CORPUSCULAR HEMOGLOBIN 31.8 pg (28.0-32.0); MEAN CORPUSCULAR HGB CONC 31.7 g/dL (31.0-37.0); MEAN CORPUSCULAR VOLUME 100.3 fL (80.0-94.0); MEAN PLATELET VOLUME 8.2 fl (7.4-10.4); MONOCYTES % 12.3 % (2.0-8.0); PLATELET 326 x1000/uL (130-400); RED BLOOD CELL COUNT 4.13 mill/uL (4.7-6.1); WHITE BLOOD COUNT 7.5 x1000/uL (4.5-11.0)
[2024-02-26 12:00] VITALS: BP 127/91; PULSE 92; RESP 18; TEMP 97.2
[2024-02-26] MEDS: ENOXAPARIN 80MG/0.8ML SYR SUBCUT NR (14:59)
[2024-02-26] MEDS: SODIUM POLYSTYRENE SULFONATE 15 G/60 ML BOT PO NR (14:59)
[2024-02-26 16:00] VITALS: BP 138/89; PULSE 98; RESP 20; TEMP 97.1
[2024-02-26 20:00] VITALS: BP 114/81; PULSE 92; RESP 16; TEMP 98.4
[2024-02-26] MEDS: SODIUM BICARBONATE 650 MG TABLET PO SCH (21:11)
[2024-02-27] VITALS: BP 109/73; PULSE 91; RESP 19; TEMP 98.4
[2024-02-27 04:00] VITALS: BP 102/68; PULSE 95; RESP 19; TEMP 99.3
[2024-02-27 08:00] VITALS: BP 123/73; PULSE 71; RESP 20; TEMP 97.1
[2024-02-27 10:23] LABS: HEMATOCRIT. 35.5 % (42.0-52.0); MEAN CORPUSCULAR HEMOGLOBIN 31.7 pg (28.0-32.0); MEAN CORPUSCULAR HGB CONC 33.7 g/dL (31.0-37.0); MEAN PLATELET VOLUME 8.2 fl (7.4-10.4); PLATELET 332 x1000/uL (130-400); RED BLOOD CELL COUNT 3.78 mill/uL (4.7-6.1); RED CELL DISTRIBUTION WIDTH 13.4 % (11.6-14.6); WHITE BLOOD COUNT 5.8 x1000/uL (4.5-11.0)
[2024-02-27 10:27] LABS: CHLORIDE 101 mEq/L (98-107); POTASSIUM 5.2 mEq/L (3.5-5.1); SODIUM 133 mEq/L (136-145)
[2024-02-27 10:28] LABS: CALCIUM 9.2 mg/dL (8.7-10.4); CARBON DIOXIDE 19 mEq/L (21-32)
[2024-02-27 10:31] LABS: DIFFERENTIAL COMMENT 1; INR 1.1; PROTHROMBIN TIME 11.9 sec (9.6-11.0)
[2024-02-27 10:33] LABS: CREATININE 4.9 mg/dL (0.6-1.3); GLUCOSE 89 mg/dL (70-105); UREA NITROGEN BLOOD 72 mg/dL (9-23)
[2024-02-27 10:35] LABS: PHOSPHORUS 6.2 mg/dL (2.5-4.9)
[2024-02-27 11:56] VITALS: BP 98/75; PULSE 88; RESP 18; TEMP 97.4
[2024-02-27] MEDS: ENOXAPARIN 80MG/0.8ML SYR SUBCUT SCH (12:00)
[2024-02-27] MEDS: HYDROCODONE/ACETAMINOPHEN 7.5/325MG TABLET PO PRN (13:14)
[2024-02-27] MEDS: LORAZEPAM 0.5MG TABLET PO PRN (13:14)
[2024-02-27] MEDS: SODIUM POLYSTYRENE SULFONATE 15 G/60 ML BOT PO NR (13:30)
[2024-02-27 16:00] VITALS: BP 105/71; PULSE 85; RESP 18; TEMP 97.7
[2024-02-27 21:02] VITALS: PULSE 73; RESP 18; TEMP 97.1
[2024-02-27 21:18] LABS: PLATELET ESTIMATE NORMAL
[2024-02-28] VITALS: BP 98/60; PULSE 99; RESP 17; TEMP 98.9
[2024-02-28 04:00] VITALS: BP 122/80; PULSE 68; RESP 19; TEMP 98
[2024-02-28 07:28] LABS: HEMATOCRIT. 33.8 % (42.0-52.0); HEMOGLOBIN. 11.5 g/dL (14.0-18.0); MEAN CORPUSCULAR HEMOGLOBIN 31.8 pg (28.0-32.0); MEAN CORPUSCULAR HGB CONC 33.9 g/dL (31.0-37.0); MEAN CORPUSCULAR VOLUME 93.6 fL (80.0-94.0); PLATELET 350 x1000/uL (130-400); RED BLOOD CELL COUNT 3.61 mill/uL (4.7-6.1); RED CELL DISTRIBUTION WIDTH 13.2 % (11.6-14.6); WHITE BLOOD COUNT 7.3 x1000/uL (4.5-11.0)
[2024-02-28 07:57] LABS: DIFFERENTIAL COMMENT 1
[2024-02-28 08:00] VITALS: BP 139/74; PULSE 81; RESP 18; TEMP 97
[2024-02-28 12:00] VITALS: BP 130/67; PULSE 75; RESP 18; TEMP 97.3
[2024-02-28 13:50] LABS: CHLORIDE 102 mEq/L (98-107); POTASSIUM 5.5 mEq/L (3.5-5.1); SODIUM 134 mEq/L (136-145)
[2024-02-28 13:51] LABS: CALCIUM 8.9 mg/dL (8.7-10.4); CARBON DIOXIDE 19 mEq/L (21-32)
[2024-02-28 13:56] LABS: GLUCOSE 93 mg/dL (70-105); UREA NITROGEN BLOOD 90 mg/dL (9-23)
[2024-02-28 13:57] LABS: CREATININE 5.4 mg/dL (0.6-1.3)
[2024-02-28 13:58] LABS: PHOSPHORUS 6.2 mg/dL (2.5-4.9)
[2024-02-28] MEDS: SODIUM POLYSTYRENE SULFONATE 15 G/60 ML BOT PO NR (14:00)
[2024-02-28] MEDS ORDERED: VANCOMYCIN 500MG PREMIX 100 ML IV NR (15:00)
[2024-02-28] MEDS: VANCOMYCIN 1.25GM PMX (XELLIA) 250 ML IV NR (15:57)
[2024-02-28 16:00] VITALS: BP 120/71; PULSE 78; RESP 18; TEMP 97.4
[2024-02-28 20:00] VITALS: BP 102/66; PULSE 90; RESP 19; TEMP 98.9
[2024-02-28] MEDS: MIRTAZAPINE 15MG TABLET PO SCH (21:09)
[2024-02-29] VITALS: BP 126/81; PULSE 104; RESP 19; TEMP 101.8
[2024-02-29 03:56] LABS: GIANT PLATELETS 1+; OVALOCYTES 1+; PLATELET ESTIMATE NORMAL
[2024-02-29 04:00] VITALS: BP 117/60; PULSE 84; RESP 18; TEMP 98.7
[2024-02-29 06:02] LABS: HEMATOCRIT. 29.6 % (42.0-52.0); HEMOGLOBIN. 9.9 g/dL (14.0-18.0); MEAN CORPUSCULAR HEMOGLOBIN 31.4 pg (28.0-32.0); MEAN CORPUSCULAR HGB CONC 33.3 g/dL (31.0-37.0); MEAN CORPUSCULAR VOLUME 94.3 fL (80.0-94.0); MEAN PLATELET VOLUME 8.4 fl (7.4-10.4); PLATELET 296 x1000/uL (130-400); RED BLOOD CELL COUNT 3.14 mill/uL (4.7-6.1); WHITE BLOOD COUNT 7.3 x1000/uL (4.5-11.0)
[2024-02-29 06:04] LABS: CARBON DIOXIDE 18 mEq/L (21-32); CHLORIDE 103 mEq/L (98-107); POTASSIUM 4.4 mEq/L (3.5-5.1); SODIUM 132 mEq/L (136-145)
[2024-02-29 06:06] LABS: CALCIUM 8.6 mg/dL (8.7-10.4)
[2024-02-29 06:10] LABS: GLUCOSE 140 mg/dL (70-105); UREA NITROGEN BLOOD 82 mg/dL (9-23)
[2024-02-29 06:13] LABS: CREATININE 5.3 mg/dL (0.6-1.3); PHOSPHORUS 4.9 mg/dL (2.5-4.9)
[2024-02-29 06:29] LABS: DIFFERENTIAL COMMENT 1
[2024-02-29 08:00] VITALS: BP 100/65; PULSE 79; RESP 16; TEMP 97.8
[2024-02-29 12:00] VITALS: BP 121/73; PULSE 86; RESP 18; TEMP 98
[2024-02-29 13:23] LABS: PLATELET ESTIMATE NORMAL
[2024-02-29] MEDS ORDERED: SODIUM POLYSTYRENE SULFONATE 15 G/60 ML BOT PO ONE (18:00)
[2024-02-29 20:00] VITALS: BP 118/68; PULSE 92; RESP 18; TEMP 99.2
[2024-03-01] VITALS: BP 118/70; PULSE 90; RESP 18; TEMP 98.9
[2024-03-01 04:00] VITALS: BP 120/68; PULSE 92; RESP 18; TEMP 98.9
[2024-03-01 08:00] VITALS: BP 128/80; PULSE 97; RESP 18; TEMP 97.7
[2024-03-01] MEDS: VANCOMYCIN 500MG/100ML IV NR (15:30)
[2024-03-01 16:37] LABS: HEMATOCRIT. 28.1 % (42.0-52.0); HEMOGLOBIN. 9.3 g/dL (14.0-18.0); MEAN CORPUSCULAR HEMOGLOBIN 31.9 pg (28.0-32.0); MEAN CORPUSCULAR HGB CONC 33.2 g/dL (31.0-37.0); MEAN PLATELET VOLUME 8.1 fl (7.4-10.4); PLATELET 286 x1000/uL (130-400); RED BLOOD CELL COUNT 2.93 mill/uL (4.7-6.1); RED CELL DISTRIBUTION WIDTH 13.3 % (11.6-14.6); WHITE BLOOD COUNT 4.4 x1000/uL (4.5-11.0)
[2024-03-01 16:38] LABS: DIFFERENTIAL COMMENT 1
[2024-03-01 16:41] LABS: CHLORIDE 107 mEq/L (98-107); POTASSIUM 4.4 mEq/L (3.5-5.1); SODIUM 135 mEq/L (136-145)
[2024-03-01 16:42] LABS: CALCIUM 8.2 mg/dL (8.7-10.4); CARBON DIOXIDE 17 mEq/L (21-32)
[2024-03-01 16:47] LABS: CREATININE 4.5 mg/dL (0.6-1.3); GLUCOSE 118 mg/dL (70-105); UREA NITROGEN BLOOD 68 mg/dL (9-23)
[2024-03-01 16:49] LABS: PHOSPHORUS 3.7 mg/dL (2.5-4.9)
[2024-03-01 17:03] LABS: PLATELET ESTIMATE NORMAL
[2024-03-01 20:00] VITALS: BP 135/78; PULSE 93; RESP 20; TEMP 98.8
[2024-03-02] VITALS: BP 129/86; PULSE 82; RESP 18; TEMP 98.1
[2024-03-02 04:00] VITALS: BP 134/77; PULSE 85; RESP 20; TEMP 98.9
[2024-03-02 04:03] VITALS: BP 134/77; PULSE 85; TEMP 98.9; O2SAT 98
== END 2024-03-02 06:08 | disposition short-term general hospital (02) | DRG 892 ==
LOC: ER 15:04 → 5WST 18:53 → EDBEDREQ 18:55 → EDBEDREQSVC 18:55 → EDBEDREQTM 18:55 → 6EST 02-20 10:19 → 7WST 02-20 19:03
PROVIDERS: ADMIT Internal Medicine; ATTEND Internal Medicine
PROC: 05HY33Z Insertion of Infusion Device into Upper Vein, Percutaneous Approach (ICD-10-PCS; principal; 2024-02-27)
PROC: B54MZZA Ultrasonography of Right Upper Extremity Veins, Guidance (ICD-10-PCS; 2024-02-27)
DX: A51.49 Other secondary syphilitic conditions (principal); B20 Human immunodeficiency virus [HIV] disease; N17.9 Acute kidney failure, unspecified; I82.621 Acute embolism and thrombosis of deep veins of right upper extremity; D72.10 Eosinophilia, unspecified; I82.611 Acute embolism and thrombosis of superficial veins of right upper extremity; N50.9 Disorder of male genital organs, unspecified; D64.9 Anemia, unspecified; E87.5 Hyperkalemia; N18.30 Chronic kidney disease, stage 3 unspecified; F43.20 Adjustment disorder, unspecified; I12.9 Hypertensive chronic kidney disease with stage 1 through stage 4 chronic kidney disease, or unspecified chronic kidney disease; J45.909 Unspecified asthma, uncomplicated; D72.819 Decreased white blood cell count, unspecified; E78.5 Hyperlipidemia, unspecified; F14.10 Cocaine abuse, uncomplicated; F17.200 Nicotine dependence, unspecified, uncomplicated; Z86.73 Personal history of transient ischemic attack (TIA), and cerebral infarction without residual deficits; Z88.6 Allergy status to analgesic agent; Z88.8 Allergy status to other drugs, medicaments and biological substances; Z79.899 Other long term (current) drug therapy; Z91.148 Patient's other noncompliance with medication regimen for other reason; Z82.49 Family history of ischemic heart disease and other diseases of the circulatory system
CPT/HCPCS: 36415; 36573; 71045; 73200; 76770; 80048; 80053; 80202; 81003; 82248; 82550; 82962; 83735; 84100; 84145; 85025; 86359; 86360; 86592; 87077; 87186; 93005; 93970; 93971; 97161; 99285; C1725; C1769; J1650; J3370; J7030